=== PATIENT | female | born 1995 | race Caucasian/White ===

== ENCOUNTER 2018-11-05 20:17 | Emergency (ER) | payer OTHER, MEDICAID, SELFPAY ==
[2018-11-05 20:23] VITALS: BP 117/73; PULSE 79; RESP 13; TEMP 36.6; O2SAT 100; BMI 32.4
--- NOTE | 2018-11-05 20:33 | ED.DENTAL ---
HPI - Dental/Oral General Chief complaint: Dental/Oral Stated complaint: JAW PAIN INFECTION Time Seen by Provider: 11/05/18 20:32 Source: patient Mode of arrival: ambulatory Limitations: no limitations History of Present Illness HPI Narrative: 23-year-old female with known poor dentition here for evaluation of left upper tooth pain. She states that it started over the past couple days. She states she has a known abscess in her right upper mouth. She states that her plans are to call her dentist on Thursday. No fevers. No problems breathing. Location: Tooth # (15) Related Data Home Medications Medication Instructions Recorded Confirmed ferrous sulfate [Iron (ferrous 625 mg PO QDAY #0 06/16/16 sulfate)] ibuprofen 400 mg PO TID #0 06/16/16 oxycodone 5 mg PO Q4HP PRN #0 tab 06/16/16 vit-iron fum-folic ac #0 04/15/17 [Mynatal] Previous Rx's Medication Instructions Recorded hydrocodone-acetaminophen [[place]] 1 tab PO Q6HP PRN #10 tab 06/16/16 clindamycin HCl 300 mg PO QID 10 Days #40 cap 11/05/18 Allergies Allergy/AdvReac Type Severity Reaction Status Date / Time amoxicillin [AMOXICILLIN] Allergy Unknown Verified 11/05/18 20:23 tetracycline [TETRACYCLINE] Allergy Unknown Verified 11/05/18 20:23 Review of Systems Constitutional Denies fever(s) and Denies headache(s) ENT Ears, Nose, Mouth, and Throat: Denies halitosis, Reports dental pain, Denies facial pain and Denies headache(s) Cardiovascular Denies dyspnea Respiratory Denies dyspnea Integumentary/Breasts Denies rash Neurologic Denies headache(s) PFSH Medical History Healthy adult (Acute) Surgical History No pertinent past surgical history (Acute) Social History Smoking Status: Never smoker Exam Initial Vital Signs Initial Vital Signs: Vital Signs Temperature 97.8 F 11/05/18 20:23 Pulse Rate 79 11/05/18 20:23 Respiratory Rate 13 11/05/18 20:23 Blood Pressure 117/73 11/05/18 20:23 Pulse Oximetry 100 11/05/18 20:23 Const General: cooperative, healthy appearing, comfortable, well developed, well groomed and No acute distress Orientation: not alert, not awake and not oriented x3 HENMT Head: normal to inspection and normocephalic Ears: TM's normal bilaterally Nose: external nose normal Face and sinus: normal facial exam and no edema Mouth: oral mucosae normal Teeth and gingiva: other (Tooth 2. And 15. Fractured. Tenderness over tooth 15.) Throat: posterior oropharynx normal and uvula midline Neck Lymphatic: No lymphadenopathy Resp Effort & Inspection: normal respiratory effort Skin Lesions: no lesions Rashes: no rashes Neuro General: alert, awake and oriented x3 Extrem General: normal to inspection and capillary refill normal Psych Appearance: grossly normal and well kempt Course Orders Ordered: Discontinued Medications Clindamycin HCl (Cleocin) 300 mg PO NOW ONE Stop: 11/05/18 20:37 Vital Signs - 8 hr 11/05/18 20:23 Temperature 97.8 F Pulse Rate 79 Respiratory Rate 13 Blood Pressure 117/73 Pulse Oximetry 100 MDM - Dental/Oral MDM Narrative Medical decision making narrative: Provided a dental injection which the patient states improved her symptoms tremendously. She was given her 1st dose of antibiotics here in the ER. Will send home with a prescription for antibiotics. Was given a prepack of pain medication. She is going to contact her dentist on Thursday. She is given return precautions. She expressed understanding and agreement with plan. Discharge Plan Departure Patient Disposition: Home Clinical Impression: Fracture of tooth, Pain due to dental caries Instructions: DI for Dental Pain Activity Restrictions/Additional Instructions: I highly recommend you contact your dentist on Thursday for follow-up. Return to the emergency department for any new or worsening symptoms Prescriptions: New clindamycin HCl 300 mg capsule 300 mg PO QID 10 Days Qty: 40 RF: 0 No Action oxycodone 5 MG tablet 5 mg PO Q4HP PRNQty: 0 RF: 0 ferrous sulfate [Iron (ferrous sulfate)] 325 MG tablet 625 mg PO QDAY Qty: 0 RF: 0 ibuprofen 400 MG tablet 400 mg PO TID Qty: 0 RF: 0 hydrocodone-acetaminophen [[place]] 5 MG/325 MG tablet 1 tab PO Q6HP PRNQty: 10 RF: 0 vit-iron fum-folic ac [Mynatal] 1 EACH capsule Qty: 0 RF: 0
[2018-11-05] MEDS: CLINDAMYCIN 150 MG CAPSULE 300 MG PO (20:50)
[2018-11-05] MEDS: HYDROCODONE/ACET 5/325 PREPACK 1 BOTTLE MISC (21:19)
[2018-11-05 21:24] VITALS: BP 118/63; PULSE 86; RESP 16; O2SAT 100
== END 2018-11-05 21:24 | disposition home or self-care (01) ==
PROVIDERS: Emergency Provider Emergency Medicine
DX: S02.5XXA Fracture of tooth (traumatic), initial encounter for closed fracture (principal); K02.9 Dental caries, unspecified
CPT/HCPCS: 99282; 99283

== ENCOUNTER 2018-11-28 19:34 | Emergency (ER) | payer OTHER, MEDICAID, SELFPAY ==
[2018-11-28] VITALS (9 sets, daily range): BP systolic 116–122; BP diastolic 63–82; PULSE 115–137; RESP 17–137; TEMP 37.2–37.4; O2SAT 98–99; BMI 31.6
--- NOTE | 2018-11-28 19:59 | ED.DIZZY ---
HPI - Dizziness General Chief Complaint: Dizziness Stated Complaint: dizzy, feels like she is burning up Time Seen by Provider: 11/28/18 19:58 Source: patient Mode of arrival: ambulatory Limitations: no limitations History of Present Illness HPI Narrative: 23-year-old female here for evaluation of multiple symptoms to include fevers, feeling lightheaded, feeling like her heart is racing, nausea, generalized not feeling very well. No recent travel. No recent antibiotics. No abdominal pain. Has not tried anything for this prior to arrival Related Data Home Medications Medication Instructions Recorded Confirmed ferrous sulfate [Iron (ferrous 625 mg PO QDAY #0 06/16/16 sulfate)] ibuprofen 400 mg PO TID #0 06/16/16 oxycodone 5 mg PO Q4HP PRN #0 tab 06/16/16 vit-iron fum-folic ac #0 04/15/17 [Mynatal] Previous Rx's Medication Instructions Recorded hydrocodone-acetaminophen [[place]] 1 tab PO Q6HP PRN #10 tab 06/16/16 ondansetron 4 mg PO Q6-8H PRN #10 tab 11/29/18 sulfamethoxazole-trimethoprim 1 tab PO BID 3 Days #6 tab 11/29/18 [Bactrim DS] Allergies Allergy/AdvReac Type Severity Reaction Status Date / Time amoxicillin [AMOXICILLIN] Allergy Unknown Verified 11/28/18 19:49 tetracycline [TETRACYCLINE] Allergy Unknown Verified 11/28/18 19:49 Review of Systems Constitutional Reports fever(s), Reports headache(s) and Reports malaise ENT Ears, Nose, Mouth, and Throat: Reports headache(s), Reports disequilibrium and Denies throat swelling Cardiovascular Denies chest pain and Denies dyspnea Respiratory Denies cough and Denies dyspnea Gastrointestinal Gastrointestinal: Denies abdominal pain, Denies diarrhea, Reports nausea and Denies vomiting Genitourinary Denies dysuria, Denies urinary urgency and Denies vaginal discharge Musculoskeletal Reports myalgias and Denies arthralgias Integumentary/Breasts Denies rash Neurologic Reports headache(s) and Reports disequilibrium Hematologic/Lymphatic Comments: Not on anticoagulation Allergic/Immunologic Denies throat swelling PFSH Medical History Healthy adult (Acute) Surgical History No pertinent past surgical history (Acute) Social History Smoking Status: Former smoker Exam Initial Vital Signs Initial Vital Signs: Vital Signs Temperature 99.3 F 11/28/18 19:43 Pulse Rate 137 H 11/28/18 19:43 Respiratory Rate 22 11/28/18 19:43 Blood Pressure 122/78 11/28/18 19:43 Pulse Oximetry 98 11/28/18 19:43 Const General: cooperative, healthy appearing, comfortable, well developed, well groomed and No acute distress Orientation: alert, awake and oriented x3 HENMT Head: normal to inspection and normocephalic Resp Effort & Inspection: normal respiratory effort Auscultation: clear to auscultation bilaterally Cardio Rate: tachycardic Rhythm: regular rhythm Pulses: radial pulses present GI Inspection: non-distended Palpation: soft, No firm and No tender Back/Spine/Pelvis Back: No CVA tenderness Skin Lesions: no lesions Rashes: no rashes Neuro General: alert, awake and oriented x3 Cognition: normal cognition Speech: speech normal Gait: normal gait Motor: muscle tone normal throughout Sensory Exam: no sensory deficits noted Extrem General: normal to inspection and capillary refill normal Psych Appearance: grossly normal and well kempt Course Orders Ordered: ED Orders 11/28/18 20:01 EKG-12 Lead Stat 11/28/18 20:07 XR chest 1V Stat 11/28/18 20:45 Complete Blood Count AUTO DIFF Stat Comprehensive Metabolic Panel Stat Ictotest Urine Stat Influenza A and B by PCR Rapid Stat Lipase Stat Procalcitonin Stat Urine Culture Stat Urine Microscopic Stat 11/28/18 20:49 Lactate (Lactic Acid) Stat 11/28/18 21:20 Blood Culture Stat Discontinued Medications Acetaminophen (Tylenol) 650 mg PO NOW ONE Stop: 11/28/18 20:10 Last Admin: 11/28/18 20:44 Dose: 650 mg Sodium Chloride (Normal Saline 0.9%) 1,000 mls @ 1,000 mls/hr IV BOLUS ONE Stop: 11/28/18 20:59 Last Infusion: 11/28/18 22:13 Dose: 0 mls/hr Admin: 11/28/18 20:53 Dose: 1,000 mls/hr Sodium Chloride (Normal Saline 0.9%) 1,000 mls @ 1,000 mls/hr IV BOLUS ONE Stop: 11/28/18 23:39 Last Infusion: 11/29/18 00:08 Dose: 0 mls/hr Admin: 11/28/18 22:44 Dose: 1,000 mls/hr Ondansetron HCl (Zofran) 4 mg IV NOW ONE Stop: 11/28/18 20:06 Last Admin: 11/28/18 20:53 Dose: 4 mg Vital Signs - 8 hr 11/28/18 19:43 11/28/18 20:00 11/28/18 20:30 Temperature 99.3 F Pulse Rate 137 H 134 H 137 H Respiratory Rate 22 24 137 H Blood Pressure 122/78 Blood Pressure [Left Arm] 122/80 117/82 Pulse Oximetry 98 99 99 11/28/18 20:44 11/28/18 21:00 11/28/18 21:36 Temperature 99.3 F Pulse Rate 137 H 118 H Respiratory Rate 23 17 Blood Pressure Blood Pressure [Left Arm] 116/67 116/67 Pulse Oximetry 98 98 11/28/18 22:02 11/28/18 22:52 11/28/18 22:57 Temperature 98.9 F Pulse Rate 121 H 117 H 115 H Respiratory Rate 18 20 25 H Blood Pressure Blood Pressure [Left Arm] 120/75 118/63 118/63 Pulse Oximetry 98 98 11/29/18 00:17 Temperature 97.3 F L Pulse Rate 103 H Respiratory Rate 16 Blood Pressure 120/60 Blood Pressure [Left Arm] Pulse Oximetry 99 MDM - Dizziness Lab Data Attestation: I reviewed the patient's lab results. Result diagrams: 11/28/18 20:45 11/28/18 20:45 Lab Results 11/28/18 11/28/18 11/28/18 Range/Units 20:45 20:45 20:45 WBC 7.8 (4.5-11.0) X10^3/uL RBC 4.56 (4.0-5.2) X10^6/uL Hgb 14.0 (12.0-16.0) g/dL Hct 40.6 (36-46) % MCV 89.0 (80-100) fL MCH 30.6 (26-34) PG MCHC 34.4 (30-36) % RDW 12.8 (11.6-14.8) % Plt Count 171 (150-400) X10^3/uL Neut % (Auto) 78.7 H (50-75) % Lymph % (Auto) 12.8 L (25-40) % [place] % (Auto) 8.2 (3-14) % Eos % (Auto) 0.1 L (2-4) % Baso % (Auto) 0.2 (0-2) % Neut # (Auto) 6200 (3901-0145) /uL Sodium 141 (137-145) mmol/L Potassium 3.4 (3.4-5.1) mmol/L Chloride 103 (98-107) mmol/L Carbon Dioxide 25 (22-32) mmol/L BUN 7 (7-17) mg/dL Creatinine 0.70 (0.52-1.04) mg/dL Estimated GFR > 60.0 (>60) mL/min BUN/Creatinine Ratio 10.0 (6-22) Glucose 106 H (70-100) mg/dL Lactate (0.7-2.1) mmol/L Calcium 9.2 (8.4-10.2) mg/dL Total Bilirubin 0.4 (0.2-1.3) mg/dL AST 27 (14-36) IU/L ALT 27 (9-52) IU/L Alkaline Phosphatase 84 (38-126) U/L Total Protein 7.6 (6.3-8.2) g/dL Albumin 4.3 (3.5-5.0) g/dL Globulin 3.3 (1.7-4.1) g/dL Albumin/Globulin Ratio 1.3 (1.0-2.8) Lipase 37 (23-300) U/L Procalcitonin 1.72 H (<0.5) ng/mL Urine Ictotest (Negative) Urine RBC (0-5/HPF) Urine WBC (0-5/HPF) Ur Squamous Epith Cells Urine Bacteria (None) Ur Culture Indicated? Micro UA Comment Influenza A & B (PCR) (Negative) 11/28/18 11/28/18 11/28/18 Range/Units 20:45 20:45 20:49 WBC (4.5-11.0) X10^3/uL RBC (4.0-5.2) X10^6/uL Hgb (12.0-16.0) g/dL Hct (36-46) % MCV (80-100) fL MCH (26-34) PG MCHC (30-36) % RDW (11.6-14.8) % Plt Count (150-400) X10^3/uL Neut % (Auto) (50-75) % Lymph % (Auto) (25-40) % [place] % (Auto) (3-14) % Eos % (Auto) (2-4) % Baso % (Auto) (0-2) % Neut # (Auto) (5468-2550) /uL Sodium (137-145) mmol/L Potassium (3.4-5.1) mmol/L Chloride (98-107) mmol/L Carbon Dioxide (22-32) mmol/L BUN (7-17) mg/dL Creatinine (0.52-1.04) mg/dL Estimated GFR (>60) mL/min BUN/Creatinine Ratio (6-22) Glucose (70-100) mg/dL Lactate 1.2 (0.7-2.1) mmol/L Calcium (8.4-10.2) mg/dL Total Bilirubin (0.2-1.3) mg/dL AST (14-36) IU/L ALT (9-52) IU/L Alkaline Phosphatase (38-126) U/L Total Protein (6.3-8.2) g/dL Albumin (3.5-5.0) g/dL Globulin (1.7-4.1) g/dL Albumin/Globulin Ratio (1.0-2.8) Lipase (23-300) U/L Procalcitonin (<0.5) ng/mL Urine Ictotest Negative (Negative) Urine RBC 1-5/hpf (0-5/HPF) Urine WBC 10-30/hpf H (0-5/HPF) Ur Squamous Epith Cells 1-5 /hpf Urine Bacteria Moderate (10-30) H (None) Ur Culture Indicated? Specimen cultured Micro UA Comment Not Reportable Influenza A & B (PCR) Negative (Negative) Point of Care Testing Test Results Negative Urine Dip Bedside Urine Glucose Negative Bedside Urine Bilirubin + 1 Bedside Urine Ketone +/- 5 Urine Specific [place] 1.015 Bedside Urine Occult Blood +++ Bedside Urine pH 7.0 Bedside Urine Protein +/- 15 Bedside Urine Urobilinogen +/- 1mg Bedside Urine Nitrite - Negative Bedside Urine Leukocytes +++ 500 Esterase Imaging Data Chest x-ray: Radiologist's impression: PROCEDURE: XR CHEST 1V INDICATIONS: fever and cough TECHNIQUE: One view of the chest was acquired. COMPARISON: None. FINDINGS: Surgical changes and devices: None. Lungs and pleura: No pleural effusions or pneumothorax. Lungs are clear. Mediastinum: Mediastinal contours appear normal. Heart size is normal. Bones and chest wall: No suspicious bony lesions. Overlying soft tissues appear unremarkable. IMPRESSION: 1. No acute cardiopulmonary disease. Dictated by: Quintin Rivera M.D. on 11/28/2018 at 21:06 Approved by: Quintin Rivera M.D. on 11/28/2018 at 21:06 ECG Data Attestation: I personally reviewed and interpreted this ECG as follows: Prior ECG tracings: not available for review Interpretation: Sinus tachycardia Ventricular rate of 135 Normal axis Normal intervals Normal QRS Normal QTC Nonspecific ST T wave changes MDM Narrative Medical decision making narrative: Patient's urinalysis consistent with a urinary tract infection. Her heart rate improved after fluids here in the ER. She had a benign abdominal exam. Normal white blood cell count but did have an elevated procalcitonin in the setting of a normal lactate. Patient was not hypotensive. No signs of pyelonephritis. Tolerating oral intake. Will send home with antibiotics treating a urinary tract infection. Culture pending at the time of discharge. Patient was given return precautions. She expressed understanding and agreement with plan. Discharge Plan Departure Patient Disposition: Home Clinical Impression: Urinary tract infection Discharge Date/Time: 11/29/18 00:18 Interventions: ED Discharge Assessment Last Done: 11/29/18 00:17 Instructions: DI for Urinary Tract Infection (UTI) Activity Restrictions/Additional Instructions: Take all the medication as directed. Make sure you increase your fluid intake. Return to the emergency department for any new or worsening symptoms Prescriptions: New sulfamethoxazole-trimethoprim [Bactrim DS] 800-160 mg tablet 1 tab PO BID 3 Days Qty: 6 RF: 0 ondansetron 4 mg tablet,disintegrating 4 mg PO Q6-8H PRN (Reason: nausea and vomiting) Qty: 10 RF: 0 No Action oxycodone 5 MG tablet 5 mg PO Q4HP PRNQty: 0 RF: 0 ferrous sulfate [Iron (ferrous sulfate)] 325 MG tablet 625 mg PO QDAY Qty: 0 RF: 0 ibuprofen 400 MG tablet 400 mg PO TID Qty: 0 RF: 0 hydrocodone-acetaminophen [[place]] 5 MG/325 MG tablet 1 tab PO Q6HP PRNQty: 10 RF: 0 vit-iron fum-folic ac [Mynatal] 1 EACH capsule Qty: 0 RF: 0
--- NOTE | 2018-11-28 20:07 | DI.RAD.S_ITS ---
PROCEDURE: XR CHEST 1V INDICATIONS: fever and cough TECHNIQUE: One view of the chest was acquired. COMPARISON: None. FINDINGS: Surgical changes and devices: None. Lungs and pleura: No pleural effusions or pneumothorax. Lungs are clear. Mediastinum: Mediastinal contours appear normal. Heart size is normal. Bones and chest wall: No suspicious bony lesions. Overlying soft tissues appear unremarkable. IMPRESSION: 1. No acute cardiopulmonary disease. Dictated by: Quintin Rivera M.D. on 11/28/2018 at 21:06 Approved by: Quintin Rivera M.D. on 11/28/2018 at 21:06
[2018-11-28] MEDS: ACETAMINOPHEN 325 MG TABLET 650 MG PO (20:44)
[2018-11-28] MEDS: ONDANSETRON 4 MG/2 ML INJ IV (20:53)
[2018-11-28] MEDS: SODIUM CHLORIDE 0.9% 1,000 ML 1000 ML IV ×2 (20:53→22:44)
[2018-11-28 21:14] LABS: Add Manual Diff / Slide Review NO; Basophils Percent Auto 0.2 % (0-2); Eosinophils Percent Auto 0.1 % (2-4); Hematocrit 40.6 % (36-46); Lymphocytes Percent Auto 12.8 % (25-40); Mean Corpuscular HGB Conc 34.4 % (30-36); Mean Corpuscular Hemoglobin 30.6 PG (26-34); Monocytes Percent Auto 8.2 % (3-14); Neutrophils Absolute Auto 6200 /uL (1500-7000); Neutrophils Percent Auto 78.7 % (50-75); Platelet Count 171 X10^3/uL (150-400); Red Blood Cell Count 4.56 X10^6/uL (4.0-5.2); Red Cell Distribution Width 12.8 % (11.6-14.8); White Blood Cell Count 7.8 X10^3/uL (4.5-11.0)
[2018-11-28 21:16] LABS: Alanine Aminotransferase 27 IU/L (9-52); Albumin 4.3 g/dL (3.5-5.0); Albumin Globulin Ratio 1.3 (1.0-2.8); Alkaline Phosphatase 84 U/L (38-126); Aspartate Aminotransferase 27 IU/L (14-36); Bilirubin Total 0.4 mg/dL (0.2-1.3); Blood Urea Nitrogen 7 mg/dL (7-17); Calcium 9.2 mg/dL (8.4-10.2); Carbon Dioxide 25 mmol/L (22-32); Chloride 103 mmol/L (98-107); Estimated Glomerular Filt Rate > 60.0 mL/min (>60); Globulin 3.3 g/dL (1.7-4.1); Glucose 106 mg/dL (70-100); HEMOLYSIS < 15 (0-50); Lipase 37 U/L (23-300); Potassium 3.4 mmol/L (3.4-5.1); Sodium 141 mmol/L (137-145); Total Protein 7.6 g/dL (6.3-8.2)
[2018-11-28 21:17] LABS: Influenza A and B by PCR Rapid Negative (Negative)
[2018-11-28 21:33] LABS: Procalcitonin 1.72 ng/mL (<0.5)
[2018-11-28 21:51] LABS: Lactate (Lactic Acid) 1.2 mmol/L (0.7-2.1)
[2018-11-28 22:57] LABS: Bacteria Urine Moderate (10-30); Culture Indicated Urine Specimen Cultured; Ictotest Urine Negative (Negative); RBC Urine 1-5/HPF (0-5/HPF); Squamous Epithelial Cell Urine 1-5 /HPF; WBC Urine 10-30/HPF (0-5/HPF)
[2018-11-29 00:17] VITALS: BP 120/60; PULSE 103; RESP 16; TEMP 36.3; O2SAT 99
== END 2018-11-29 00:18 | disposition home or self-care (01) ==
PROVIDERS: Emergency Provider Emergency Medicine
DX: N39.0 Urinary tract infection, site not specified (principal)
CPT/HCPCS: 36415; 36591; 71045; 80053; 81003; 81015; 81025; 83605; 83690; 84145; 85025; 87040; 87077; 87086; 87400; 93005; 96361; 96374; 99284; 99285; J2405

== ENCOUNTER 2019-03-22 23:11 | Emergency (ER) | payer OTHER, MEDICAID, SELFPAY ==
[2019-03-22 23:15] VITALS: BP 133/82; PULSE 129; RESP 18; TEMP 37.1; O2SAT 99; BMI 31.7
--- NOTE | 2019-03-22 23:27 | ED.ABDPAIN ---
HPI - Abdominal Pain General Chief Complaint: Abdominal Pain Stated Complaint: chills, pain right side thinks gall bladder Time Seen by Provider: 03/22/19 23:26 Source: patient Mode of arrival: ambulatory Limitations: no limitations History of Present Illness HPI narrative: Patient is a 23-year-old female here for evaluation of right upper quadrant abdominal pain. Patient states she thinks it is her gallbladder. Has had some nausea but no vomiting. No change in stool. No urinary symptoms. She has never had this pain in the past. Her current pain started within the past 24 hours. Does not seem to be associated with any eating. Has not tried anything for the symptoms prior to arrival. Related Data Home Medications Medication Instructions Recorded Confirmed ferrous sulfate [Iron (ferrous 625 mg PO QDAY #0 06/16/16 sulfate)] ibuprofen 400 mg PO TID #0 06/16/16 oxycodone 5 mg PO Q4HP PRN #0 tab 06/16/16 vit-iron fum-folic ac #0 04/15/17 [Mynatal] Previous Rx's Medication Instructions Recorded hydrocodone-acetaminophen [[place]] 1 tab PO Q6HP PRN #10 tab 06/16/16 ondansetron 4 mg PO Q6-8H PRN #10 tab 11/29/18 Allergies Allergy/AdvReac Type Severity Reaction Status Date / Time amoxicillin [AMOXICILLIN] Allergy Unknown Verified 11/28/18 19:49 tetracycline [TETRACYCLINE] Allergy Unknown Verified 11/28/18 19:49 Review of Systems Constitutional Denies fever(s) and Denies headache(s) ENT Ears, Nose, Mouth, and Throat: Denies vertigo and Denies headache(s) Cardiovascular Denies chest pain and Denies dyspnea Respiratory Denies dyspnea Gastrointestinal Gastrointestinal: Reports abdominal pain, Denies bloating, Denies change in stool character, Denies constipation, Denies cramping and Denies vomiting Genitourinary Denies dysuria and Denies flank pain Musculoskeletal Denies myalgias and Denies arthralgias Integumentary/Breasts Denies rash Neurologic Denies confusion, Denies vertigo and Denies headache(s) Psychiatric Denies confusion and Denies paranoia Hematologic/Lymphatic Denies easy bleeding and Denies easy bruising Allergic/Immunologic Denies urticaria [facility] Medical History Healthy adult (Acute) Surgical History (Updated 11/05/18 @ 20:52 by Miguel Fatima DO) No pertinent past surgical history (Acute) Social History Smoking Status: Former smoker Social History Smoking Status: Former smoker Exam Initial Vital Signs Initial Vital Signs: Vital Signs Temperature 98.8 F 03/22/19 23:15 Pulse Rate 129 H 03/22/19 23:15 Respiratory Rate 18 03/22/19 23:15 Blood Pressure 133/82 03/22/19 23:15 Pulse Oximetry 99 03/22/19 23:15 Const General: cooperative, comfortable, well developed, well groomed and No acute distress Orientation: alert, awake and oriented x3 HENMT Head: normal to inspection and normocephalic Resp Effort & Inspection: normal respiratory effort Auscultation: clear to auscultation bilaterally Cardio Rate: tachycardic Rhythm: regular rhythm Pulses: radial pulses present GI Inspection: non-distended Palpation: soft, No firm, No guarding and tender (Right upper quadrant negative [place] sign) Back/Spine/Pelvis Back: No CVA tenderness Skin Lesions: no lesions Rashes: no rashes Neuro General: alert, awake and oriented x3 Cognition: normal cognition Speech: speech normal Gait: normal gait Extrem General: normal to inspection and capillary refill normal Psych Appearance: grossly normal and well kempt Scores GCS [place] coma scale eye opening: Spontaneous [place] coma scale verbal response: Orientated [place] coma scale motor response: Obey commands Lex coma scale total score: 15 Course Orders Ordered: ED Orders 03/22/19 23:31 Complete Blood Count AUTO DIFF Stat Comprehensive Metabolic Panel Stat Lipase Stat 03/22/19 23:33 EKG-12 Lead Stat 03/22/19 23:49 US abdomen limited Stat 03/23/19 01:30 Ictotest Urine Stat Urine Microscopic Stat Discontinued Medications Sodium Chloride (Normal Saline 0.9%) 1,000 mls @ 1,000 mls/hr IV BOLUS ONE Stop: 03/23/19 00:26 Last Infusion: 03/23/19 01:01 Dose: 0 mls/hr Admin: 03/23/19 00:00 Dose: 1,000 mls/hr Vital Signs - 8 hr 03/22/19 23:15 03/23/19 00:40 03/23/19 00:43 Temperature 98.8 F Pulse Rate 129 H 106 H Respiratory Rate 18 18 Blood Pressure 133/82 Blood Pressure [Right Arm] 118/68 Pulse Oximetry 99 99 03/23/19 02:47 Temperature Pulse Rate 106 H Respiratory Rate 15 Blood Pressure 115/83 Blood Pressure [Right Arm] Pulse Oximetry 97 MDM - Abdominal Pain Lab Data Attestation: I reviewed the patient's lab results. Result diagrams: 03/22/19 23:31 03/22/19 23:31 Lab Results 03/22/19 03/22/19 03/23/19 Range/Units 23:31 23:31 01:30 WBC 6.6 (4.5-11.0) X10^3/uL RBC 4.68 (4.0-5.2) X10^6/uL Hgb 14.3 (12.0-16.0) g/dL Hct 41.1 (36-46) % MCV 87.8 (80-100) fL MCH 30.5 (26-34) PG MCHC 34.7 (30-36) % RDW 13.3 (11.6-14.8) % Plt Count 197 (150-400) X10^3/uL Neut % (Auto) 74.7 (50-75) % Lymph % (Auto) 18.7 L (25-40) % [place] % (Auto) 5.7 (3-14) % Eos % (Auto) 0.6 L (2-4) % Baso % (Auto) 0.3 (0-2) % Neut # (Auto) 4900 (2601-9690) /uL Lymph # (Auto) 1200 (3302-8337) /uL [place] # (Auto) 400 (0-900) /uL Eos # (Auto) 0 (0-450) /uL Baso # (Auto) 0 (0-100) /uL Sodium 139 (137-145) mmol/L Potassium 4.0 (3.4-5.1) mmol/L Chloride 105 (98-107) mmol/L Carbon Dioxide 22 (22-32) mmol/L BUN 10 (7-17) mg/dL Creatinine 0.70 (0.52-1.04) mg/dL Estimated GFR > 60.0 (>60) mL/min BUN/Creatinine Ratio 14.3 (6-22) Glucose 116 H (70-100) mg/dL Calcium 9.2 (8.4-10.2) mg/dL Total Bilirubin 0.6 (0.2-1.3) mg/dL AST 25 (14-36) IU/L ALT 21 (9-52) IU/L Alkaline Phosphatase 82 (38-126) U/L Total Protein 7.9 (6.3-8.2) g/dL Albumin 4.4 (3.5-5.0) g/dL Globulin 3.5 (1.7-4.1) g/dL Albumin/Globulin Ratio 1.3 (1.0-2.8) Lipase 43 (23-300) U/L Urine Ictotest Negative (Negative) Urine RBC None seen (0-5/HPF) Urine WBC 1-5/hpf (0-5/HPF) Ur Squamous Epith Cells 10-30 /hpf H D (0-5/HPF) Urine Bacteria Many (>30) H (None) Ur Culture Indicated? Cult not indicated Micro UA Comment * Point of care testing: Point of Care Testing Test Results Negative Urine Dip Bedside Urine Glucose Negative Bedside Urine Bilirubin + 1 Bedside Urine Ketone - Negative Urine Specific [place] 1.025 Bedside Urine Occult Blood - Negative Bedside Urine pH 5.5 Bedside Urine Protein +/- 15 Bedside Urine Urobilinogen +/- 1mg Bedside Urine Nitrite - Negative Bedside Urine Leukocytes +/- 15 Esterase Imaging Data US - abdomen: Radiologist's impression: No abnormality of the gallbladder seen. Probable fatty liver. ECG Data Attestation: I personally reviewed and interpreted this ECG as follows: Prior ECG tracings: not available for review Interpretation: Sinus tachycardia Ventricular rate of 108 Normal axis Normal QRS Normal QTC No ST T wave changes MDM Narrative Medical decision making narrative: Patient initially tachycardic in triage however this improved while she was here in the ER. Her EKG was unremarkable. patient with right upper quadrant abdominal pain. The ultrasound was unremarkable. Her LFTs and lipase unremarkable. Urine shows no signs of an infection. Patient has a relatively benign abdominal exam. Given her presentation and her physical exam will hold on further workup for now. I did discuss all the test results with the patient. She was given return precautions and follow-up instructions. She expressed understanding and agreement with plan. Discharge Plan Departure Patient Disposition: Home Clinical Impression: Abdominal pain Qualifiers: Abdominal location: right upper quadrant Qualified Code(s): R10.11 - Right upper quadrant pain Discharge Date/Time: 03/23/19 02:42 Interventions: ED Discharge Assessment Last Done: 03/23/19 02:47 Instructions: DI for Abdominal Pain-Adult Activity Restrictions/Additional Instructions: Continue all of your medications as directed. Contact your primary care doctor for follow-up. Return to the emergency department for any new or worsening symptoms Prescriptions: No Action oxycodone 5 MG tablet 5 mg PO Q4HP PRNQty: 0 RF: 0 ferrous sulfate [Iron (ferrous sulfate)] 325 MG tablet 625 mg PO QDAY Qty: 0 RF: 0 ibuprofen 400 MG tablet 400 mg PO TID Qty: 0 RF: 0 hydrocodone-acetaminophen [[place]] 5 MG/325 MG tablet 1 tab PO Q6HP PRNQty: 10 RF: 0 vit-iron fum-folic ac [Mynatal] 1 EACH capsule Qty: 0 RF: 0 ondansetron 4 mg tablet,disintegrating 4 mg PO Q6-8H PRN (Reason: nausea and vomiting) Qty: 10 RF: 0
[2019-03-22 23:39] LABS: Add Manual Diff / Slide Review NO; Basophils Absolute Auto 0 /uL (0-100); Basophils Percent Auto 0.3 % (0-2); Eosinophils Absolute Auto 0 /uL (0-450); Eosinophils Percent Auto 0.6 % (2-4); Hematocrit 41.1 % (36-46); Hemoglobin 14.3 g/dL (12.0-16.0); Lymphocytes Absolute Auto 1200 /uL (1100-4500); Lymphocytes Percent Auto 18.7 % (25-40); Mean Corpuscular HGB Conc 34.7 % (30-36); Mean Corpuscular Hemoglobin 30.5 PG (26-34); Mean Corpuscular Volume 87.8 fL (80-100); Monocytes Absolute Auto 400 /uL (0-900); Monocytes Percent Auto 5.7 % (3-14); Neutrophils Absolute Auto 4900 /uL (1500-7000); Neutrophils Percent Auto 74.7 % (50-75); Platelet Count 197 X10^3/uL (150-400); Red Blood Cell Count 4.68 X10^6/uL (4.0-5.2); Red Cell Distribution Width 13.3 % (11.6-14.8); White Blood Cell Count 6.6 X10^3/uL (4.5-11.0)
[2019-03-22 23:44] LABS: Alanine Aminotransferase 21 IU/L (9-52); Albumin 4.4 g/dL (3.5-5.0); Albumin Globulin Ratio 1.3 (1.0-2.8); Alkaline Phosphatase 82 U/L (38-126); Aspartate Aminotransferase 25 IU/L (14-36); BUN Creatinine Ratio 14.3 (6-22); Bilirubin Total 0.6 mg/dL (0.2-1.3); Blood Urea Nitrogen 10 mg/dL (7-17); Calcium 9.2 mg/dL (8.4-10.2); Carbon Dioxide 22 mmol/L (22-32); Chloride 105 mmol/L (98-107); Estimated Glomerular Filt Rate > 60.0 mL/min (>60); Globulin 3.5 g/dL (1.7-4.1); Glucose 116 mg/dL (70-100); HEMOLYSIS 49 (0-50); Lipase 43 U/L (23-300); Sodium 139 mmol/L (137-145); Total Protein 7.9 g/dL (6.3-8.2)
--- NOTE | 2019-03-22 23:49 | DI.US.S_ITS ---
PROCEDURE: US ABDOMEN LIMITED INDICATIONS: RIGHT UPPER QUADRANT PAIN TECHNIQUE: Real-time focused scanning was performed of the abdomen, with image documentation. COMPARISON: [facility], , ABDOMEN LTD, 03/17/2017, 15:29. FINDINGS: Liver is diffusely increased in echogenicity. No focal hepatic abnormalities identified. Normal hepatic size. No gallstones identified. Normal gallbladder wall. No pericholecystic fluid. Negative sonographic Encinas sign. No biliary dilatation, with the common bile duct measuring 4.1 mm. Normal appearance of the pancreas. IMPRESSION: No source for right upper quadrant pain identified. Note: These findings are concordant with the preliminary interpretation. Dictated by: Gilmar Reynolds [facility] Interpreted: Aaron Ward MD on 03/23/2019 at 8:30 Approved by: Aaron Ward M.D. on 03/23/2019 at 11:06
[2019-03-23] MEDS: SODIUM CHLORIDE 0.9% 1,000 ML 1000 ML IV
[2019-03-23 00:40] VITALS: PULSE 106; RESP 18; O2SAT 99
[2019-03-23 00:43] VITALS: BP 118/68
[2019-03-23 01:53] LABS: RBC Urine None Seen (0-5/HPF)
[2019-03-23 02:10] LABS: Bacteria Urine Many (>30); Ictotest Urine Negative (Negative); WBC Urine 1-5/HPF (0-5/HPF)
[2019-03-23 02:11] LABS: Squamous Epithelial Cell Urine 10-30 /HPF (0-5/HPF)
[2019-03-23 02:12] LABS: Culture Indicated Urine Cult Not Indicated
[2019-03-23 02:47] VITALS: BP 115/83; PULSE 106; RESP 15; O2SAT 97
== END 2019-03-23 02:42 | disposition home or self-care (01) ==
PROVIDERS: Emergency Provider Emergency Medicine
DX: R10.11 Right upper quadrant pain (principal); R11.0 Nausea; R00.0 Tachycardia, unspecified
CPT/HCPCS: 36591; 76705; 80053; 81003; 81015; 81025; 83690; 85025; 93005; 96360; 99283; 99285

== ENCOUNTER 2020-02-25 09:06 | Emergency (ER) | payer OTHER, MEDICAID, SELFPAY ==
[2020-02-25 09:28] VITALS: BP 126/88; PULSE 82; RESP 12; TEMP 36.5; O2SAT 100
--- NOTE | 2020-02-25 09:31 | ED_ITS ---
HPI - General Adult General Chief complaint: Fever Stated complaint: cleared for work/ fever cleared Time Seen by Provider: 02/25/20 09:26 Source: patient Mode of arrival: Ambulatory Limitations: no limitations History of Present Illness HPI narrative: Patient is an otherwise healthy 24-year-old female who is a project account manager at [employer]. She states that on this week had a slight headache in a fever and a cough. She states that last evening her fever ?broke?. Has not taken anything this morning. Is essentially asymptomatic this morning. Is here because her work told her that she needed a note to return to work. Related Data Home Medications Medication Instructions Recorded Confirmed ferrous sulfate [Iron (ferrous 625 mg PO QDAY #0 06/16/16 sulfate)] ibuprofen 400 mg PO TID #0 06/16/16 oxycodone 5 mg PO Q4HP PRN #0 tab 06/16/16 vit-iron fum-folic ac #0 04/15/17 [Mynatal] Previous Rx's Medication Instructions Recorded hydrocodone-acetaminophen [[place]] 1 tab PO Q6HP PRN #10 tab 06/16/16 ondansetron 4 mg PO Q6-8H PRN #10 tab 11/29/18 Allergies Allergy/AdvReac Type Severity Reaction Status Date / Time amoxicillin [AMOXICILLIN] Allergy Unknown Verified 11/28/18 19:49 tetracycline [TETRACYCLINE] Allergy Unknown Verified 11/28/18 19:49 Review of Systems Constitutional Constitutional: Reports fever(s) and Reports headache(s) ENT Ears, Nose, Mouth, and Throat: Reports headache(s) and Reports sore throat Respiratory Respiratory: Reports cough Musculoskeletal Musculoskeletal: Denies myalgias and Denies arthralgias Integumentary/Breasts Skin/Breast: Denies lesions and Denies rash Neurologic Neurologic: Denies behavioral changes and Reports headache(s) Psychiatric Psychiatric: Denies behavioral changes Hematologic/Lymphatic Hematologic/Lymphatic: Denies easy bleeding and Denies easy bruising Patient History Medical History Healthy adult (Acute) Surgical History No pertinent past surgical history (Acute) Social History Smoking Status: Former smoker Smoking Status: Former smoker alcohol intake frequency: 0-2 drinks per day Substance Use Type: former substance user Exam Initial Vital Signs Initial Vital Signs: Vital Signs Temperature 97.7 F 02/25/20 09:28 Pulse Rate 82 02/25/20 09:28 Respiratory Rate 12 02/25/20 09:28 Blood Pressure 126/88 02/25/20 09:28 Pulse Oximetry 100 02/25/20 09:28 Resp Effort & Inspection: normal respiratory effort Cardio Rate: regular rate Skin Lesions: no lesions Rashes: no rashes Neuro General: alert and awake Cognition: normal cognition Speech: speech normal Psych Appearance: grossly normal and well kempt Course Vital Signs Vital signs: Vital Signs - 8 hr 02/25/20 09:28 Temperature 97.7 F Pulse Rate 82 Respiratory Rate 12 Blood Pressure 126/88 Pulse Oximetry 100 Medical Decision Making MDM Narrative Medical decision making narrative: Normal exam, asymptomatic today, feel that we could hold on testing for any COVID informed patient that there is a possibility that she has this. Informed her that she needs to be at least 7 days since her symptom onset and 72 hour symptom-free before she can return to work. She was given return precautions. She expressed understanding agreement. Discharge Plan Departure Patient Disposition: Home Clinical Impression: Fever Qualifiers: Fever type: unspecified Qualified Code(s): R50.9 - Fever, unspecified Discharge Date/Time: 02/25/20 09:43 Instructions: DI for Fever (Symptom) -- Adult Activity Restrictions/Additional Instructions: *What to do: * per recommendations from the CDC and the [facility] Department of Health * stay home except to get medical care. Restrict activities outside your home, except for getting medical care. Do not go to work, school, or public areas. Avoid using public transportation, ride sharing, or taxis. * separate yourself from other people in your home. * call ahead before visiting your doctor * Wear a face mask * Cover your coughs and sneezes * Clean your hands often * Avoid sharing household items * Clean all high-touch services every day * Monitor your symptoms and seek prompt medical attention if your illness is worsening, particularly with difficulty in breathing. Discussed continuing home isolation * for individuals with symptoms who are confirmed or suspected cases of COVID-19 and are directed to care for themselves at home, discontinue home isolation under the following conditions: 1. At least 72 hours have passed since recovery, defined as resolution of fever without the use of fever reducing medications, and improvement in respiratory symptoms (cough, shortness of breath) AND, 2. At least 7 days have passed since symptoms 1st appeared Individuals with laboratory confirmed COVID-19 who have not had any symptoms may discontinue home isolation when at least 7 days have passed since the date of their 1st COVID-19 diagnostic test and have had no subsequent illness Prescriptions: No Action oxycodone 5 MG tablet 5 mg PO Q4HP PRNQty: 0 RF: 0 ferrous sulfate [Iron (ferrous sulfate)] 325 MG tablet 625 mg PO QDAY Qty: 0 RF: 0 ibuprofen 400 MG tablet 400 mg PO TID Qty: 0 RF: 0 hydrocodone-acetaminophen [[place]] 5 MG/325 MG tablet 1 tab PO Q6HP PRNQty: 10 RF: 0 vit-iron fum-folic ac [Mynatal] 1 EACH capsule Qty: 0 RF: 0 ondansetron 4 mg tablet,disintegrating 4 mg PO Q6-8H PRN (Reason: nausea and vomiting) Qty: 10 RF: 0 Stand Alone Forms: Work Release Note
--- NOTE | 2020-02-25 09:42 | PC.NURSE ---
no fever, wants note for work
== END 2020-02-25 09:43 | disposition home or self-care (01) ==
PROVIDERS: Emergency Provider Emergency Medicine
DX: R50.9 Fever, unspecified (principal)
CPT/HCPCS: 99281

== ENCOUNTER 2021-01-10 18:55 | Emergency (ER) | payer OTHER, MEDICAID, SELFPAY ==
[2021-01-10 19:03] VITALS: BP 125/77; PULSE 79; RESP 14; TEMP 36.4; O2SAT 100; BMI 32.4
--- NOTE | 2021-01-10 20:06 | PC.NURSE ---
patient is a mother who is currently 9 wks with a current known fibroid. She is currently being seen by Dr. Arriola in [facility]. She stated that she has migraine headaches but has no more imatrex to take. She states that her coworker went home sick on Thursday and her mom was sick last week with the Stomach flu. Today she has a headache that is 7/10, with pelvic cramps, muscle soreness, chills. She denies fever at this time. Incidentally she claims that she developed cholestasis for each of her in and around 30 wks. She had an ultrasound at Dr. oliveros's office on jan 01 and she was told that the placenta may have implanted into her uterus.
--- NOTE | 2021-01-10 20:22 | ED_ITS ---
HPI - Headache General Chief Complaint: Headache Stated Complaint: headache, nausea, cramping, 9wks Time Seen by Provider: 01/10/21 20:19 Source: patient Mode of arrival: Ambulatory Limitations: no limitations History of Present Illness HPI Narrative: Patient is a 25-year-old female who is approximately 9 weeks with a known intrauterine from a ultrasound performed at a outside facility here for evaluation which she states is a headache. She is also having some nausea and cramping but no other abdominal pain and no loss of fluid no vaginal bleeding. She has a history of migraines. She states that her headache today feels like 1 of her migraines. States she normally takes Imitrex however no longer has a prescription for this. Denies any fevers. Related Data Home Medications Medication Instructions Recorded Confirmed ferrous sulfate [Iron (ferrous 625 mg PO QDAY #0 06/16/16 sulfate)] ibuprofen 400 mg PO TID #0 06/16/16 oxycodone 5 mg PO Q4HP PRN #0 tab 06/16/16 vit-iron fum-folic ac #0 04/15/17 [Mynatal] Previous Rx's Medication Instructions Recorded hydrocodone-acetaminophen [[place]] 1 tab PO Q6HP PRN #10 tab 06/16/16 ondansetron 4 mg PO Q6-8H PRN #10 tab 11/29/18 sumatriptan succinate [Imitrex] See Rx Instructions .ROUTE 01/10/21 .COMPLEX #10 tab Allergies Allergy/AdvReac Type Severity Reaction Status Date / Time amoxicillin [AMOXICILLIN] Allergy Unknown Verified 01/10/21 19:03 tetracycline [TETRACYCLINE] Allergy Unknown Verified 01/10/21 19:03 Review of Systems Constitutional Constitutional: Denies fever(s) and Reports headache(s) Eyes Eyes: Reports blurry vision ENT Ears, Nose, Mouth, and Throat: Reports headache(s) Cardiovascular Cardiovascular: Denies chest pain and Denies dyspnea Respiratory Respiratory: Denies dyspnea Gastrointestinal Gastrointestinal: Reports nausea Genitourinary Genitourinary: Denies vaginal discharge Musculoskeletal Musculoskeletal: Denies arthralgias and Denies myalgias Integumentary/Breasts Skin/Breast: Denies lesions and Denies rash Neurologic Neurologic: Denies behavioral changes and Reports headache(s) Psychiatric Psychiatric: Denies behavioral changes Hematologic/Lymphatic On Anticoagulants: No Allergic/Immunologic Allergic/Immunologic: Denies urticaria Patient History Medical History Healthy adult Surgical History No pertinent past surgical history Social History Smoking Status: Former smoker Smoking Status: Former smoker alcohol intake frequency: holidays/special occasions only Substance Use Type: does not use Exam Initial Vital Signs Initial Vital Signs: Vital Signs Temperature 97.5 F L 01/10/21 19:03 Pulse Rate 79 01/10/21 19:03 Respiratory Rate 14 01/10/21 19:03 Blood Pressure 125/77 01/10/21 19:03 Pulse Oximetry 100 01/10/21 19:03 Const General: cooperative and comfortable Limitations: mental status not altered HENMT Head: normal to inspection and normocephalic Resp Effort & Inspection: normal respiratory effort Cardio Rate: regular rate GI Inspection: non-distended Skin Lesions: no lesions Rashes: no rashes Neuro General: patient alert, patient awake and patient oriented x3 Cognition: normal cognition Speech: speech normal Gait: normal gait Extrem General: normal to inspection Psych Appearance: grossly normal and well kempt Course Orders Ordered: Discontinued Medications Sumatriptan Succinate (Sumatriptan 25 Mg Tablet) 25 mg PO NOW ONE Stop: 01/10/21 20:24 Last Admin: 01/10/21 20:55 Dose: 25 mg Documented by: SANDER Vital Signs Vital signs: Vital Signs - 8 hr 01/10/21 21:40 Pulse Rate 76 Respiratory Rate 14 Blood Pressure 116/56 L Pulse Oximetry 99 MDM - Headache MDM Narrative Medical decision making narrative: Patient is a known IUP. Is not having any vaginal bleeding or vaginal discharge. Was given 1 dose of Imitrex here in the emergency department and she reported a resolution of her headache. Will send home with a prescription for this medication. It is appropriate use in according to up-to-date. Patient was given return precautions and follow-up instructions. She expressed understanding and agreement. Discharge Plan Departure Patient Disposition: Home Clinical Impression: Migraine, Instructions: DI for Migraine Activity Restrictions/Additional Instructions: I do recommend you continue all of your medications as directed. Keep all of your scheduled medical appointments to include your OB appointments. Return to the emergency department for any new or worsening symptoms. Prescriptions: New sumatriptan succinate [Imitrex] 25 mg tablet See Rx Instructions .ROUTE .COMPLEX Qty: 10 RF: 0 No Action oxycodone 5 MG tablet 5 mg PO Q4HP PRNQty: 0 RF: 0 ferrous sulfate [Iron (ferrous sulfate)] 325 MG tablet 625 mg PO QDAY Qty: 0 RF: 0 ibuprofen 400 MG tablet 400 mg PO TID Qty: 0 RF: 0 hydrocodone-acetaminophen [[place]] 5 MG/325 MG tablet 1 tab PO Q6HP PRNQty: 10 RF: 0 vit-iron fum-folic ac [Mynatal] 1 EACH capsule Qty: 0 RF: 0 ondansetron 4 mg tablet,disintegrating 4 mg PO Q6-8H PRN (Reason: nausea and vomiting) Qty: 10 RF: 0
[2021-01-10] MEDS: SUMAtriptan 25 MG TABLET PO (20:55)
[2021-01-10 21:40] VITALS: BP 116/56; PULSE 76; RESP 14; O2SAT 99
== END 2021-01-10 21:41 | disposition home or self-care (01) ==
PROVIDERS: Emergency Provider Emergency Medicine
DX: O26.891 Other specified pregnancy related conditions, first trimester (principal); Z3A.09 9 weeks gestation of pregnancy; G43.909 Migraine, unspecified, not intractable, without status migrainosus; R10.9 Unspecified abdominal pain
CPT/HCPCS: 99281; 99283

== ENCOUNTER 2021-02-10 20:45 | Emergency (ER) | payer OTHER, MEDICAID, SELFPAY ==
[2021-02-10 20:45] VITALS: BP 123/62; PULSE 83; RESP 16; TEMP 36.8; O2SAT 100; BMI 32.4
--- NOTE | 2021-02-10 21:33 | ED.EXTPRO ---
HPI - Extremity Problem General Chief complaint: Extremity Problem,Nontraumatic Stated complaint: fall, numbness left leg Time Seen by Provider: 02/10/21 20:53 Source: patient Mode of arrival: Ambulatory Limitations: no limitations History of Present Illness HPI Narrative: 25F former smoker with history of right sided sciatic presents with some pain and numbness in her left leg after a near fall earlier today. She is 13 weeks and stumbled earlier and spun awkwardly and fell sideways into a cabinet, with a primary point of impact being her left hip. She denies head or neck pain. She denies abdominal pain or cramping. She denies pelvic pain, cramping, bleeding, or leakage of fluid. She denies any loss of control of bowel or bladder. She denies lower extremity weakness or foot drop. She does have mild pain in her left lower back that radiates down her left leg and occasional tingling. She states her pain is worse when she moves and improves with rest. Onset (ago): hour(s) Pain Consistency: constant Location: left Severity scale (1-10): 4 Quality: stabbing Radiation: distal Relieving factors: rest Exacerbating factors: range of motion and walking Related Data Home Medications Medication Instructions Recorded Confirmed ferrous sulfate [Iron (ferrous 625 mg PO QDAY #0 06/16/16 sulfate)] ibuprofen 400 mg PO TID #0 06/16/16 oxycodone 5 mg PO Q4HP PRN #0 tab 06/16/16 vit-iron fum-folic ac #0 04/15/17 [Mynatal] Previous Rx's Medication Instructions Recorded hydrocodone-acetaminophen [[place]] 1 tab PO Q6HP PRN #10 tab 06/16/16 ondansetron 4 mg PO Q6-8H PRN #10 tab 11/29/18 sumatriptan succinate [Imitrex] See Rx Instructions .ROUTE 01/10/21 .COMPLEX #10 tab Allergies Allergy/AdvReac Type Severity Reaction Status Date / Time amoxicillin [AMOXICILLIN] Allergy Unknown Verified 02/10/21 20:59 tetracycline [TETRACYCLINE] Allergy Unknown Verified 02/10/21 20:59 Review of Systems Constitutional Constitutional: Denies chills, Denies fatigue, Denies fever(s), Denies frequent falls, Denies lethargy and Denies weakness Eyes Eyes: Denies change in vision, Denies eye discharge, Denies irritation and Denies loss of vision ENT Ears, Nose, Mouth, and Throat: Denies change in voice, Denies dizziness, Denies neck pain, Denies sore throat and Denies throat swelling Cardiovascular Cardiovascular: Denies chest pain, Denies irregular heart rhythm, Denies lightheadedness, Denies palpitations, Denies dyspnea, Denies dyspnea on exertion and Denies orthopnea Respiratory Respiratory: Denies cough, Denies dyspnea, Denies dyspnea on exertion and Denies wheezing Gastrointestinal Gastrointestinal: Denies abdominal pain, Denies change in bowel habits, Denies diarrhea, Denies nausea and Denies vomiting Musculoskeletal Musculoskeletal: Reports back pain, Denies neck pain, Reports numbness and Reports radiating pain into limb Integumentary/Breasts Skin/Breast: Denies pruritus, Denies erythema, Denies rash and Denies wounds Neurologic Neurologic: Denies behavioral changes, Denies confusion, Denies dizziness, Denies frequent falls, Denies loss of vision, Reports numbness and Denies weakness Psychiatric Psychiatric: Denies anxiety, Denies behavioral changes, Denies confusion, Denies depression, Denies homicidal ideation and Denies suicidal ideation Endocrine Endocrine: Denies fatigue, Denies flushing and Denies palpitations Hematologic/Lymphatic Hematologic/Lymphatic: Denies easy bruising Allergic/Immunologic Allergic/Immunologic: Denies urticaria, Denies throat swelling and Denies wheezing Patient History Medical History Healthy adult Surgical History No pertinent past surgical history Social History Smoking Status: Former smoker Smoking Status: Former smoker alcohol intake frequency: holidays/special occasions only Substance Use Type: does not use Exam Narrative Exam Narrative: GENERAL: [25] year old patient appears stated age. Well-nourished, well-developed patient, in mild distress. HEAD: Atraumatic. Normocephalic. EYES: Pupils equal round and reactive. Extraocular motions intact. No scleral icterus. No injection or drainage. ENT: Nose without bleeding, purulent drainage. Throat without erythema, tonsillar hypertrophy or exudate. Airway patent. NECK: Trachea midline. Non tender CARDIOVASCULAR: Regular rate and rhythm without murmurs, gallops, or rubs. RESPIRATORY: Clear to auscultation. Breath sounds equal bilaterally. No wheezes, rales, or rhonchi. GASTROINTESTINAL: Abdomen soft, non-tender, nondistended. EXTREMITIES: No edema or joint tenderness. BACK: wash tank tender but free of any obvious external abnormalities. Patient exam notes decreased range of motion and muscle spasm, but no CVA tenderness, or vertebral point tenderness. There are no symptoms of cauda equina such as saddle anesthesia, and decreased reflexes, decreased sensation or strength. NEURO: AOx3. SKIN: No rash or erythema of visible areas Initial Vital Signs Initial Vital Signs: Vital Signs Temperature 98.3 F 02/10/21 20:45 Pulse Rate 83 02/10/21 20:45 Respiratory Rate 16 02/10/21 20:45 Blood Pressure 123/62 02/10/21 20:45 Pulse Oximetry 100 02/10/21 20:45 Course Vital Signs Vital signs: Vital Signs - 8 hr 02/10/21 20:45 02/10/21 21:59 Temperature 98.3 F Pulse Rate 83 99 H Respiratory Rate 16 16 Blood Pressure 123/62 98/59 L Pulse Oximetry 100 99 MDM - Extremity (Nontraumatic) MDM Narrative Medical decision making narrative: Multiple etiologies of back pain considered including; Epidural abscess, cauda equina, mass occupying lesion, and other considered. No red flag symptoms such as saddle anesthesia, loss of control of bowel or bladder, fever, IV drug abuse. No direct trauma to the bone, no midline pain, no step-offs, no x-ray indicated. Extensive discussion with guarding return precautions and the need for follow-up. She has had her questions answered to her apparent satisfaction Discharge Plan Departure Patient Disposition: Home Clinical Impression: Left lumbar pain Qualifiers: Chronicity: acute Sciatica presence: with sciatica Sciatica laterality: sciatica of left side Qualified Code(s): M54.42 - Lumbago with sciatica, left side Instructions: Low Back Pain Activity Restrictions/Additional Instructions: *You have been diagnosed with [low back pain with radicular symptoms] *What to do: *Take medications as directed: Tylenol is the only recommended medication at this point time. Other options are potentially harmful for your baby *Follow up with your primary care provider in 2-3 days, call for an appointment. Let them know you were seen in the Emergency Department and that we ask that you be seen in follow up *Return to ER if you should have any new, worsening or concerning symptoms, such as [increasing pain, weakness of your leg, loss of control of bowel or bladder or other bothersome symptoms] Prescriptions: No Action oxycodone 5 MG tablet 5 mg PO Q4HP PRNQty: 0 RF: 0 ferrous sulfate [Iron (ferrous sulfate)] 325 MG tablet 625 mg PO QDAY Qty: 0 RF: 0 ibuprofen 400 MG tablet 400 mg PO TID Qty: 0 RF: 0 hydrocodone-acetaminophen [[place]] 5 MG/325 MG tablet 1 tab PO Q6HP PRNQty: 10 RF: 0 vit-iron fum-folic ac [Mynatal] 1 EACH capsule Qty: 0 RF: 0 sumatriptan succinate [Imitrex] 25 mg tablet See Rx Instructions .ROUTE .COMPLEX Qty: 10 RF: 0 ondansetron 4 mg tablet,disintegrating 4 mg PO Q6-8H PRN (Reason: nausea and vomiting) Qty: 10 RF: 0 Stand Alone Forms: Work Release Note
[2021-02-10 21:59] VITALS: BP 98/59; PULSE 99; RESP 16; O2SAT 99
== END 2021-02-10 21:59 | disposition home or self-care (01) ==
PROVIDERS: Emergency Provider Emergency Medicine
DX: M54.42 Lumbago with sciatica, left side (principal)
CPT/HCPCS: 99281

== ENCOUNTER 2021-07-25 16:38 | Outpatient (CLI) | payer OTHER, MEDICAID, SELFPAY ==
--- NOTE | 2021-07-25 17:28 | P.TNLD_ITS ---
Visit Information Visit Information Date of evaluation: 07/25/21 Primary OB Provider: Isabella Alejandra Reason for Evaluation: Yes non-stress test non-stress test reason: other (cholestasis) [facility] Medical History (Updated 07/25/21 @ 17:31 by Isabella Alejandra MD) Cholestasis during Healthy adult Surgical History (Updated 07/25/21 @ 16:20 by Isabella Alejandra MD) No pertinent past surgical history Social History Smoking Status: Former smoker Evaluation Evaluation Baseline heart rate: 135 Variability: Moderate (11-25) monitor accelerations: Present Monitor Decelerations: Absent Contraction Frequency (minutes): 0 Category of Tracing: Reactive Status: Category l Comments: Ultrasound was performed. Normal amniotic fluid volume. Good movement, tone, breathing. Reactive nonstress test. Diagnosis, Plan/Disposition Final Diagnosis (1) Cholestasis during : Status: Acute (2) 37 weeks gestation of : Status: Acute Plan/Disposition Plan: 09/01 biophysical profile. Patient is scheduled for repeat on 07/30/2021. Precautions reviewed with patient. OB Disposition: home
== END 2021-07-25 17:30 | disposition home or self-care (01) ==
LOC: OB 07-30 12:03
PROVIDERS: PCP Specialist; Referring Provider Specialist; Visit Provider Specialist
DX: O26.613 Liver and biliary tract disorders in pregnancy, third trimester (principal); K83.1 Obstruction of bile duct; Z3A.37 37 weeks gestation of pregnancy
CPT/HCPCS: 59025; 76815; G0378; G0379

== ENCOUNTER 2021-07-26 13:19 | Outpatient (CLI) | payer OTHER, MEDICAID, SELFPAY ==
--- NOTE | 2021-07-26 13:58 | P.TNLD_ITS ---
Visit Information Visit Information Date of evaluation: 07/26/21 Primary OB Provider: Isabella Alejandra Reason for Evaluation: Yes [facility] Medical History (Updated 07/26/21 @ 13:59 by Isabella Alejandra MD) Cholestasis during False labor Healthy adult Surgical History (Updated 07/25/21 @ 16:20 by Isabella Alejandra MD) No pertinent past surgical history Social History Smoking Status: Former smoker Evaluation Evaluation Baseline heart rate: 150 Variability: Moderate (11-25) monitor accelerations: Present Monitor Decelerations: Absent Category of Tracing: Reactive Status: Category l Non-invasive Membranes Rupture Test: negative Diagnosis, Plan/Disposition Final Diagnosis (1) 37 weeks gestation of : Status: Acute (2) False labor: Status: Acute Plan/Disposition Plan: Patient was concerned she might have broken her bag of water but not complaining of contractions or other concerns. AmniSure was negative. She will be discharged home she has scheduled in 5 days. OB Disposition: home
== END 2021-07-26 14:05 | disposition home or self-care (01) ==
LOC: LABOR 13:58 → OB 07-30 12:02
PROVIDERS: PCP Specialist; Referring Provider Specialist; Visit Provider Specialist
DX: Z03.71 Encounter for suspected problem with amniotic cavity and membrane ruled out (principal); O47.1 False labor at or after 37 completed weeks of gestation; Z3A.37 37 weeks gestation of pregnancy
CPT/HCPCS: 59025; 84112; G0378; G0379

== ENCOUNTER 2021-07-30 08:07 | Inpatient (IN) | payer OTHER, MEDICAID, SELFPAY ==
--- NOTE | 2021-07-30 | PATH_ITS ---
[facility] Accession Number: [id number] . 01 Material submitted: . fallopian tube - RIGHT AND LEFT FALLOPIAN TUBE . 01 Clinical history: . REPEAT C-SECTON . 02 Diagnosis: Right and Left Fallopian Tubes, Bilateral Salpingectomy: Complete cross sections of fallopian tubes x2 with scattered benign paratubal cysts (1-10 mm). Negative for atypia or malignancy. V 08/01/2021 1332 Local . 02 Electronically signed: . Leyda Hartley MD, Pathologist NPI- [id number] . 01 Gross description: . The specimen is received in formalin, labeled right and left fallopian tubes and consists of two fallopian tubes measuring 5.0 cm in length by 0.7 cm in diameter and 6.9 cm in length by 0.7 cm in diameter. The serosa is thorpe-pink and smooth and there are multiple paratubal cysts ranging from 0.1-1.0 cm. Sectioning reveals a thorpe mucosa and a stellate lumen measuring 0.2 cm in diameter. Patient Office Rep sections of each fallopian tube are submitted, to include the en face margin (blue), central cross sections and bisected fimbria, in cassettes A1-A2. (EA:[id number]) /MRV 07/31/2021 1029 Local . 02 Pathologist provided ICD-10: Z98.891, O26.619 . 02 CPT . 311157 Performed at: 01 [facility] [address] [id number] MD Quintin Canela MD Phone: [phone] Performed at: 02 [facility] [address] [place] [id number] MD Acacia Bowles MD Phone: [phone]
[2021-07-30] MEDS: LACTATED RINGERS 1,000 ML 100 ML IV (09:10)
[2021-07-30 09:20] VITALS: BP 126/76
--- NOTE | 2021-07-30 09:26 | PM.PREOP ---
Pre-operative Note COVID-19 COVID-19 status: Result pending Result date/Date tested (Pos, Neg/Pending): 07/30/21 Interval Note History & Physical reviewed/Exam performed by Physician: Yes Changes to H&P: No
--- NOTE | 2021-07-30 09:29 | P.HPOB_ITS ---
OB HPI Date/Time Date of admission: 07/30/21 Date Patient Seen: 07/30/21 Time Patient Seen: 09:29 History of Present Condition Chief complaint: REPEAT W/STERILIZATION : 5 Para: 4 Estimated Date of Delivery: 08/12/21 Estimated Gestational Age (weeks): 37 Narrative: Soheila Reese is a 26 year old female admitted for repeat C- section with bilateral tubal ligation for cholestasis in , 3 prior sections, wish for sterilization Indications Operative indications ( section): previous uterine surgery Other reason(s) for admission: Cholestasis in History of Present care: good care, initiated at week # (8), number of visits (11) and pounds weight gain (14) Dating criteria: LMP confirmed by 1st trimester US Ultrasounds: normal mid trimester US Obstetrical complications: labor (Treated twice) and other (Cholestasis in ) Preadmission Labs Blood type: 0 (-) negative -: Antibody screen: negative, HBsAG: negative, HIV: negative and RPR/VDLR: negative -: Chlamydia screen: not detected and Gonorrhea screen: not detected -: Rubella: immune and Varicella: immune HCAB: negative 1 hr GTT: 143 3 hr GTT: 1 hr (151), 2 hr (114) and 3 hr (153) Fasting blood glucose: 85 Prior (ies) History: See outpatient records 01/30/2013 female vaginal delivery, sections in 2013, 2015, 2016 one girl two boys Evaluation Evaluation Baseline heart rate: 130 Variability: Moderate (11-25) monitor accelerations: Present Monitor Decelerations: Absent Contraction Frequency (minutes): 5 Uterine Contraction Intensity: Mild Category of Tracing: Reactive Status: Category l PFSH Medical History (Updated 07/26/21 @ 13:59 by Isabella Alejandra MD) Cholestasis during False labor Healthy adult Surgical History No pertinent past surgical history Social History Smoking Status: Former smoker Meds Home Medications and Allergies Home Medications Medication Instructions Recorded Confirmed Type vitamin-ferrous fumarate 1 cap PO DAILY #0 04/15/17 07/30/21 History 65 mg iron-folic acid 1 mg capsule (Mynatal) sumatriptan succinate 25 mg tablet See Rx Instructions .ROUTE 01/10/21 07/30/21 Rx (Imitrex) .COMPLEX #10 tab ursodiol 500 mg tablet 500 mg PO Q4-6H tab 07/25/21 07/30/21 History Allergies Allergy/AdvReac Type Severity Reaction Status Date / Time amoxicillin [AMOXICILLIN] Allergy Unknown MOUTH SORES Verified 07/30/21 09:16 tetracycline [TETRACYCLINE] Allergy Unknown Verified 07/25/21 15:32 Review of Systems Review of Systems Narrative: Patient denies headaches, scotomata, epigastric pain. Good movement. No leakage of fluid. No contractions. Exam Vital Signs (past 8 hours): Blood pressure 126/76, pulse 75, temperature 98.4?- 07/30/21 09:20 Blood Pressure 126/76 Narrative Exam Narrative: HEENT exam within normal limits. Lungs are clear to auscultation percussion. Heart is regular rate and rhythm no S3-S4 murmurs. Abdomen is soft, nontender. Fetus is vertex. Extremities without edema and nontender Objective Labs Result Diagrams: 07/30/21 09:23 Assessment and Plan Assessment and Plan Assessment and Plan narrative: 37 and half week gestation with cholestasis in and 3 prior sections and wish for sterilization here for repeat low-transverse section and bilateral tubal resection.
[2021-07-30 09:36] LABS: Add Manual Diff / Slide Review NO; Basophils Absolute Auto 100 /uL (0-100); Basophils Percent Auto 0.7 % (0-2); Eosinophils Absolute Auto 0 /uL (0-450); Eosinophils Percent Auto 0.5 % (2-4); Hematocrit 32.5 % (36-46); Hemoglobin 10.7 g/dL (12.0-16.0); Lymphocytes Absolute Auto 1600 /uL (1100-4500); Lymphocytes Percent Auto 18.3 % (25-40); Mean Corpuscular HGB Conc 32.8 % (30-36); Mean Corpuscular Hemoglobin 27.8 PG (26-34); Mean Corpuscular Volume 84.8 fL (80-100); Monocytes Absolute Auto 700 /uL (0-900); Monocytes Percent Auto 8.2 % (3-14); Neutrophils Absolute Auto 6500 /uL (1500-7000); Neutrophils Percent Auto 72.3 % (50-75); Platelet Count 167 X10^3/uL (150-400); Red Blood Cell Count 3.83 X10^6/uL (4.0-5.2); Red Cell Distribution Width 13.7 % (11.6-14.8)
[2021-07-30 10:31] LABS: COVID19 - ADMIT (NP swab/PCR) Negative (Negative)
[2021-07-30] MEDS: ACETAMINOPHEN IV 1,000 MG/100 ML VIAL 400 MG IV (12:18)
--- NOTE | 2021-07-30 12:29 | SUR.OPER ---
Supine on Padded OR bed, head on pillow, safety belt at thigh, arms secured on padded arm boards at <90 degrees abduction. Bump under right buttock. Legs uncrossed with pillow under knees, gel pad to heels, tape over blanket to lower legs.
--- NOTE | 2021-07-30 12:36 | SUR.OPER ---
PLACENTA AND CORD BLOOD TO LABOR DEPARTMENT
[2021-07-30] MEDS: CEFAZOLIN 1 GM VIAL 2 GM IV (12:48)
[2021-07-30 13:24] VITALS: BP 1100/61; PULSE 61; RESP 18; TEMP 36.7; O2SAT 100
[2021-07-30 13:28] VITALS: BP 112/65; PULSE 64; RESP 18; O2SAT 99
[2021-07-30 13:33] VITALS: BP 118/67; PULSE 66; RESP 15; O2SAT 100
--- NOTE | 2021-07-30 13:37 | PM.OP.1 ---
Operative Date/Time/Diagnoses Date of procedure: 07/30/21 Time of procedure: 13:37 Pre-op diagnosis: 371/2 weeks gestation with 3 prior sections, cholestasis and wish for sterilization Post-op diagnosis: same Procedure & Clinicians Procedure: Repeat low-transverse section, lysis of adhesions, bilateral salpingectomies Same procedure as scheduled: Yes Indications: 3 prior sections with cholestasis in and wish for sterilization Surgeon: Isabella Alejandra Flight Teacher: Fany Carlin Click Yes if Unassisted: No Anesthesia Type: Spinal Operative Notes Findings: Adhesion of the uterus to the anterior abdominal wall on the left. Prior section incision we with extreme thinness. Adhesion of the omentum to the anterior abdominal wall on the left. Normal tubes, ovaries. Viable female infant weighing 6 lb 9 oz with Apgars of 8 and 9. Closure Type: primary Specimen(s): other (Bilateral fallopian tubes) Applied: catheter (Michael) Estimated Blood Loss (mL): 450 Blood products transfused: none Procedure in detail: The patient was brought to the operating room where she underwent a spinalfor anesthesia. She was placed in a supine position with a left lateral tilt. A Michael catheter was placed. Pulsatile stockings were placed and functional throughout the case. 2 g of Ancef were given IV prior to the incision. Warming was in place. The patient was prepped and draped in usual sterile fashion. A low transverse incision was made with a scalpel and the incision was carried down to the fascial layer which was incised transversely with scissors. The child care center assistant director did her side of the incision. The midline attachments are superiorly and inferiorly. Some bleeding was controlled Bovie. The rectus muscles were in the midline and the peritoneal incision was made with no damage to internal structures. The peritoneum was incised and superiorly and inferiorly. Due to the significant adhesion of the uterus to the anterior abdominal wall, careful dissection was performed removing the adhesion until the uterus was freed. Incision was stretched with the surgeon and child care center assistant director placing traction. Bladder blade was placed. The attempt to make a bladder flap resulted in entry into the uterus because the muscle layer was so thin. The incision was extended with stretching. The head was elevated out of the abdomen and with fundal pressure by the child care center assistant director the baby was delivered. The infant was bulb suctioned for clear fluid and handed off to the warmer. Cord blood was collected. The placenta delivered spontaneously with traction. The uterus was cleaned with clean laps. The uterine incision was closed in 2 layers of 0 chromic suture the first a running locking layer the second an imbricating layer. The child care center assistant director was helping to expose the incision. The areas where the uterus had been attached to the anterior abdominal wall were repaired with [id number] sutures and bleeding stopped with the Bovie. The ovaries and fallopian tubes were observed to be normal. The fallopian tube was grasped with a Lorton and the mesosalpinx tied off in 4 sutures of 2-0 Vicryl suture. The tube was removed from the uterus after clamping, cut and tied. Same procedure was performed on the left side. Gutters were cleaned of any remaining fluids. Adequate hemostasis was noted. The perineum was closed with 2-0 Vicryl suture. The fascia layer was closed with 0 Vicryl suture with 2 stitches. The child care center assistant director repairing half the incision with helping to retract and expose the incision for the other half. The incision was irrigated and adequate hemostasis noted. The incision was closed with interrupted 3-0 Vicryl sutures and then a subcuticular stitch of 4-0 Vicryl suture. Steri-Strips were placed. The uterus was massaged to remove any clots. The patient went to recovery room in good condition. Counts of instruments and sponges were correct. Dr. Carlin was present throughout the case to assist with retraction, fundal pressure to deliver the , and suturing half the fascia. Complications: none Post-operative Condition: stable Disposition: other ( Center) Plan for aftercare: Routine post section
[2021-07-30] MEDS: KETOROLAC 30 MG/ML VIAL IV ×2 (13:43→19:59)
[2021-07-30 13:48] VITALS: BP 116/65; PULSE 73; RESP 16; O2SAT 100
[2021-07-30 13:53] VITALS: BP 116/80; PULSE 90; RESP 12; O2SAT 100
[2021-07-31] MEDS: KETOROLAC 30 MG/ML VIAL IV ×2 (02:18→09:22)
[2021-07-31 07:23] LABS: Add Manual Diff / Slide Review NO; Basophils Absolute Auto 0 /uL (0-100); Basophils Percent Auto 0.3 % (0-2); Eosinophils Absolute Auto 0 /uL (0-450); Eosinophils Percent Auto 0.3 % (2-4); Hematocrit 31.2 % (36-46); Hemoglobin 10.2 g/dL (12.0-16.0); Lymphocytes Absolute Auto 1700 /uL (1100-4500); Lymphocytes Percent Auto 14.3 % (25-40); Mean Corpuscular HGB Conc 32.8 % (30-36); Mean Corpuscular Hemoglobin 27.8 PG (26-34); Mean Corpuscular Volume 84.7 fL (80-100); Monocytes Absolute Auto 1100 /uL (0-900); Monocytes Percent Auto 9.6 % (3-14); Neutrophils Absolute Auto 8800 /uL (1500-7000); Neutrophils Percent Auto 75.5 % (50-75); Platelet Count 152 X10^3/uL (150-400); Red Blood Cell Count 3.68 X10^6/uL (4.0-5.2); Red Cell Distribution Width 13.7 % (11.6-14.8); White Blood Cell Count 11.6 X10^3/uL (4.5-11.0)
--- NOTE | 2021-07-31 09:09 | PM.OBDS.1 ---
Discharge Providers Provider Date of admission: 07/30/21 08:07 Discharge Date: 07/31/21 Consults: 07/30/21 13:52 Consult to Human Resources Executive Assistant Routine Comment: Discharge provider: Isabella Alejandra MD Summary Hospital Course Date Patient Seen: 07/31/21 Time Patient Seen: 09:09 Diagnoses: 38 week gestation with cholestasis in , 3 prior sections, and wish for sterilization Hospital Course: Patient underwent a repeat low-transverse section with bilateral salpingectomies on 07/30/2021. Patient is doing well. No headaches, scotomata, epigastric pain. She is urinating and ambulating well. She is passing gas. Pain is under control. Mild bleeding. Itching is the same. Peripartum Data Delivery Method: Section (Repeat) Procedures: Repeat low-transverse section with bilateral salpingectomies complications: none 1: Gender: Female Disposition of : home Discharge Diagnosis (1) Delivery by section of full-term : Status: Acute (2) History of 3 sections: Status: Acute (3) Cholestasis during : Status: Acute Status at Discharge Cognitive/behavioral status at discharge: oriented Functional status at discharge: independent ambulation Overall status at discharge: patient is progressing back to baseline Time Spent with Patient Time attestation: Total time spent providing and/or coordinating discharge services: Time spent: Less than 30 minutes Objective Labs Result Diagrams: 07/31/21 06:45 Labs: Laboratory Results - last 24 hr 07/30/21 07/30/21 07/30/21 09:03 09:23 09:23 WBC 9.0 RBC 3.83 L Hgb 10.7 L Hct 32.5 L MCV 84.8 MCH 27.8 MCHC 32.8 RDW 13.7 Plt Count 167 Neut % (Auto) 72.3 Lymph % (Auto) 18.3 L Overton % (Auto) 8.2 Eos % (Auto) 0.5 L Baso % (Auto) 0.7 Neut # (Auto) 6500 Lymph # (Auto) 1600 Overton # (Auto) 700 Eos # (Auto) 0 Baso # (Auto) 100 SARS-CoV-2 (PCR) Negative Blood Type O Negative Antibody Screen Negative Maternal Bleed 07/31/21 07/31/21 06:45 06:45 WBC 11.6 H RBC 3.68 L Hgb 10.2 L Hct 31.2 L MCV 84.7 MCH 27.8 MCHC 32.8 RDW 13.7 Plt Count 152 Neut % (Auto) 75.5 H Lymph % (Auto) 14.3 L Overton % (Auto) 9.6 Eos % (Auto) 0.3 L Baso % (Auto) 0.3 Neut # (Auto) 8800 H Lymph # (Auto) 1700 [place]ton # (Auto) 1100 H Eos # (Auto) 0 Baso # (Auto) 0 SARS-CoV-2 (PCR) Blood Type Antibody Screen Maternal Bleed Negative Exam Vital Signs (past 8 hours): Blood pressure 133/82, pulse of 86, temperature 97.8? Oxygen Delivery Method Room Air Narrative Exam Narrative: Patient's abdomen is soft, nontender. Uterus is firm, at U, nontender. Dressing is clean, dry, intact. Mild lochia. Extremities without edema and nontender. Patient is O negative baby is Rh positive so she will receive RhoGAM prior to discharge. She is rubella immune and received Tdap in the 3rd trimester. Discharge Plan Discharge Plan Patient Disposition: Home Discharge orders & Medications Prescriptions: New ferrous sulfate 325 mg (65 mg iron) Tablet 325 mg PO DAILY Qty: 30 RF: 0 docusate sodium 100 mg Capsule 200 mg PO DAILY Qty: 20 RF: 0 ibuprofen 600 mg Tablet 600 mg PO Q6H PRN (Reason: Fever/Mild Pain (1-3)) Qty: 30 RF: 0 oxycodone-acetaminophen 5-325 mg tablet 1 tab PO Q4-6H PRN (Reason: pain) Qty: 30 RF: 0 Continued Mynatal 1 EACH capsule 1 cap PO DAILY Qty: 0 RF: 0 ursodiol 500 mg tablet 500 mg PO Q4-6H RF: 0 sumatriptan succinate [Imitrex] 25 mg tablet See Rx Instructions .ROUTE .COMPLEX Qty: 10 RF: 0 Follow up/Referrals: Isabella Alejandra MD [Physician] - 1 Week (Aquacel removal) Diet/Activity/Treatments Diet: Regular Activity: Nothing in vagina or lifting over 20 lb for 6 weeks Skin/Wound/Dressing Care Report to your healthcare provider any signs of infection, such as:: chills, fever and increased pain Dressing: Leave dressing on until 1 week postop appointment
[2021-07-31] MEDS: FERROUS SULFATE 325 MG TABLET PO (09:30)
[2021-07-31] MEDS: DOCUSATE 100 MG CAPSULE 200 MG PO (09:30)
[2021-07-31] MEDS: RHO(D) IMMUNE GLOBULIN 1,500 UNIT SYRINGE 1500 UNIT IM (09:31)
[2021-07-31 10:53] VITALS: BP 129/83; PULSE 96; RESP 16; TEMP 36.6
== END 2021-07-31 11:55 | disposition home or self-care (01) | DRG 540 ==
PROVIDERS: Admitting Provider Specialist; Referring Provider Specialist; Visit Provider Specialist
PROC: 10D00Z1 Extraction of Products of Conception, Low, Open Approach (ICD-10-PCS; CPT 59514; principal; 2021-07-30 10:45)
DX: O34.211 Maternal care for low transverse scar from previous cesarean delivery (principal); Z3A.37 37 weeks gestation of pregnancy; Z37.0 Single live birth; O26.62 Liver and biliary tract disorders in childbirth; K83.1 Obstruction of bile duct; Z30.2 Encounter for sterilization
CPT/HCPCS: 36415; 58611; 59050; 59514; 85025; 85461; 86850; 86900; 86901; 87635; C9803; J0131; J0690; J1885; J2274; J2590; J2790

== ENCOUNTER 2021-10-16 10:40 | Emergency (ER) | payer OTHER, MEDICAID, SELFPAY ==
[2021-10-16 11:02] VITALS: BP 130/80; PULSE 107; RESP 18; TEMP 36.6; O2SAT 98; BMI 33.3
--- NOTE | 2021-10-16 12:43 | ED.URI ---
HPI - URI/Sore Throat <Oskar Hurd PA-C - Last Filed: 10/16/21 19:47> General Chief Complaint: Upper Respiratory Symptoms Stated Complaint: Cough, runny nose Time Seen by Provider: 10/16/21 12:02 History of Present Illness HPI Narrative: Patient is a 26-year-old female presenting to the emergency department today for an evaluation of a sore throat that began 5 days ago. Patient has a 4-year-old son an 2-month-old daughter at home that all have also been experiencing similar symptoms. Patient reports associated fever, rhinorrhea, and cough. No chills, abdominal pain, nausea, vomiting, diarrhea, dysuria, or rash reported. No other concerns voiced at this time. Related Data Previous Rx's Medication Instructions Recorded sumatriptan succinate 25 mg tablet See Rx Instructions .ROUTE 01/10/21 (Imitrex) .COMPLEX #10 tab Allergies Allergy/AdvReac Type Severity Reaction Status Date / Time tetracycline [TETRACYCLINE] Allergy Unknown Verified 08/19/21 10:14 amoxicillin [AMOXICILLIN] AdvReac Unknown MOUTH SORES Verified 08/19/21 10:14 Review of Systems <Oskar Hurd PA-C - Last Filed: 10/16/21 19:47> Constitutional Constitutional: Denies chills, Denies fatigue, Reports fever(s), Denies frequent falls, Denies lethargy and Denies weakness ENT Ears, Nose, Mouth, and Throat: Denies change in voice, Denies dizziness, Reports nasal congestion, Denies neck pain, Reports sore throat, Denies throat swelling and Reports other (Rhinorrhea) Cardiovascular Cardiovascular: Denies chest pain, Denies irregular heart rhythm, Denies lightheadedness, Denies palpitations, Denies dyspnea, Denies dyspnea on exertion and Denies orthopnea Respiratory Respiratory: Reports cough, Denies dyspnea, Denies dyspnea on exertion and Denies wheezing Gastrointestinal Gastrointestinal: Denies abdominal pain, Denies change in bowel habits, Denies diarrhea, Denies nausea and Denies vomiting Genitourinary Genitourinary: Denies hematuria, Denies flank pain, Denies urinary incontinence and Denies urinary urgency Musculoskeletal Musculoskeletal: Denies neck pain Neurologic Neurologic: Denies dizziness, Denies frequent falls and Denies weakness Endocrine Endocrine: Denies fatigue and Denies palpitations Allergic/Immunologic Allergic/Immunologic: Denies urticaria, Denies throat swelling and Denies wheezing Patient History <Oskar Hurd PA-C - Last Filed: 10/16/21 19:47> Medical History Cholestasis during Healthy adult Surgical History History of 3 sections No pertinent past surgical history Social History Smoking Status: Former smoker Smoking Status: Former smoker alcohol intake frequency: holidays/special occasions only Substance Use Type: does not use Exam <Oskar Hurd PA-C - Last Filed: 10/16/21 19:47> Narrative Exam Narrative: GENERAL: 26 year old patient appears stated age. Well-developed patient, in no acute distress. HEAD: Atraumatic. Normocephalic. EYES: Pupils equal round and reactive. Extraocular motions intact. No scleral icterus. No injection or drainage. ENT: Nose without bleeding, purulent drainage. Throat without erythema, tonsillar hypertrophy or exudate. Airway patent. Tympanic membranes clear bilaterally, no erythema or bulging appreciated. NECK: Trachea midline. Non tender CARDIOVASCULAR: Regular rate and rhythm without murmurs, gallops, or rubs. RESPIRATORY: Clear to auscultation. Breath sounds equal bilaterally. No wheezes, rales, or rhonchi. GASTROINTESTINAL: Abdomen soft, non-tender, nondistended. EXTREMITIES: No edema or joint tenderness. BACK: Nontender without deformity or crepitance. No flank tenderness. NEURO: AOx3. SKIN: No rash or erythema of visible areas Initial Vital Signs Initial Vital Signs: Vital Signs Temperature 97.8 F 10/16/21 11:02 Pulse Rate 107 H 10/16/21 11:02 Respiratory Rate 18 10/16/21 11:02 Blood Pressure 130/80 10/16/21 11:02 Pulse Oximetry 98 10/16/21 11:02 <Miguel Fatima DO - Last Filed: 10/18/21 07:15> Initial Vital Signs Initial Vital Signs: Vital Signs Temperature 97.8 F 10/16/21 11:02 Pulse Rate 107 H 10/16/21 11:02 Respiratory Rate 18 10/16/21 11:02 Blood Pressure 130/80 10/16/21 11:02 Pulse Oximetry 98 10/16/21 11:02 Course <Oskar Hurd PA-C - Last Filed: 10/16/21 19:47> Course Course Narrative: Rapid strep ordered Vital Signs Vital signs: Vital Signs - 8 hr 10/16/21 13:30 Pulse Rate 100 H Respiratory Rate 20 Pulse Oximetry 99 <Miguel Fatima DO - Last Filed: 10/18/21 07:15> Vital Signs Vital signs: Vital Signs - 8 hr 10/16/21 13:30 Pulse Rate 100 H Respiratory Rate 20 Pulse Oximetry 99 MDM - URI/Sore Throat <Oskar Hurd PA-C - Last Filed: 10/16/21 19:47> Lab Data Labs: Point of Care Testing Rapid Strep A Negative MDM Narrative Medical decision making narrative: Patient is a 26-year-old female presenting to the emergency department today for an evaluation of a sore throat that began 5 days ago. To consider strep pharyngitis versus viral pharyngitis versus viral upper respiratory infection versus seasonal allergies versus allergic rhinitis. Strep returned negative. Patient has children who are in the emergency department with her today both tested positive for RSV. Discussed with the patient the likelihood that she is also experiencing viral upper respiratory infection symptoms and stressed the importance of symptomatic treatment. Strict return precautions discussed with the patient prior to discharge. <Miguel Fatima DO - Last Filed: 10/18/21 07:15> Lab Data Labs: Point of Care Testing Rapid Strep A Negative Discharge Plan Departure Patient Disposition: Home Clinical Impression: Upper respiratory infection Instructions: DI for Viral Upper Respiratory Infection -- Adult Activity Restrictions/Additional Instructions: *You have been diagnosed with viral upper respiratory infection *What to do: *Please continue to take your regular medications as directed. [ ] New medication prescriptions sent to your pharmacy: [ ] [ ] New medication written as a paper prescription [X] No new medications given *Please follow up with your primary care provider in the next 24-48 hours, call for an appointment. Let them know you were seen in the Emergency Department and that we ask that you be seen in follow up. We will electronically transmit a record of today's note if your PCP is in our system *If you do not have a primary care provider please contact the [facility] Resource line at [phone]. They will ask some questions about your medical history and help get you set up with a doctor in the community. *Return to Emergency Department if you should have any new, worsening or concerning symptoms, such as fever greater than 101 F, shaking chills, worsening shortness of breath, persistent vomiting or other bothersome symptoms. Prescriptions: No Action sumatriptan succinate [Imitrex] 25 mg tablet See Rx Instructions .ROUTE .COMPLEX Qty: 10 0RF Rx Instructions: take 1 tab at onset of headache; if no relief may repeat 1 tab after at least 2 hrs; max = 4 tabs/24 hr Referrals: Miscellaneous,Doctor, [Primary Care Provider] - <Miguel Fatima, - Last Filed: 10/18/21 07:15> Cosign ED Attending Cosignature Attestation: Dr Fatima Co-Sign Statement: I was available for consultation during this patient's emergency department visit. This chart is signed by myself for administrative purposes only. I did not have direct contact with this patient during this visit. They were seen independently by the APC.
[2021-10-16 13:30] VITALS: PULSE 100; RESP 20; O2SAT 99
== END 2021-10-16 13:30 | disposition home or self-care (01) ==
PROVIDERS: Emergency Provider Physician Assistant
DX: J02.8 Acute pharyngitis due to other specified organisms (principal)
CPT/HCPCS: 87880; 99281

== ENCOUNTER 2022-04-13 15:29 | Emergency (ER) | payer OTHER, MEDICAID, SELFPAY ==
[2022-04-13 15:34] VITALS: BP 131/82; PULSE 88; RESP 18; TEMP 36.7; O2SAT 98; BMI 30.7
--- NOTE | 2022-04-13 17:33 | ED.ABDPAIN ---
HPI - Abdominal Pain <Iman Lee DO - Last Filed: 04/25/22 02:06> General Chief Complaint: Abdominal Pain Stated Complaint: ABD pain X 2 days Time Seen by Provider: 04/13/22 16:30 Source: patient Mode of arrival: Ambulatory History of Present Illness HPI narrative: Patient is a 26-year-old healthy female who presents with abdominal pain. She says been ongoing for about 1 day. But periumbilical area. She is really sensitive to touch. Minimal nausea no vomiting no fever or chills. She has never had anything like this before. She denies any chest pain cough or shortness of breath or any other symptoms. Related Data Home Medications Medication Instructions Recorded Confirmed sumatriptan succinate 50 mg tablet 50 mg PO PRN tab 03/07/22 03/07/22 Previous Rx's Medication Instructions Recorded sumatriptan succinate 25 mg tablet See Rx Instructions .ROUTE 01/10/21 (Imitrex) .COMPLEX #10 tab Allergies Allergy/AdvReac Type Severity Reaction Status Date / Time tetracycline [TETRACYCLINE] Allergy Unknown Verified 03/07/22 08:45 amoxicillin [AMOXICILLIN] AdvReac Unknown MOUTH SORES Verified 03/07/22 08:45 Review of Systems <Iman Lee DO - Last Filed: 04/25/22 02:06> Review of Systems Narrative: GENERAL: Denies chills, fatigue, malaise, fever, sweats, travel HEENT: Denies sinus pain, ear pain, sore throat, difficulty swallowing, neck pain RESPIRATORY: Denies dyspnea, cough, wheezing, hemoptysis, sputum. CARDIOVASCULAR: Denies chest pain, palpitations, orthopnea, edema GASTROINTESTINAL: See HPI : Denies dysuria, frequency, incontinence, hematuria, urinary retention, flank pain. MUSCULOSKELETAL: Denies weakness, joint pain, or bony pain SKIN: No rash, no erythema, no pruritus NEUROLOGIC: Denies weakness, dizziness, headache, numbness, change in speech, confusion PSYCHIATRIC: No concerning psychosocial issues. 12 point review of systems is negative except for those stated above and HPI Patient History <Iman Lee DO - Last Filed: 04/25/22 02:06> Medical History Cholestasis during Healthy adult Surgical History History of 3 sections No pertinent past surgical history Social History Smoking Status: Former smoker Smoking Status: Former smoker alcohol intake frequency: holidays/special occasions only Substance Use Type: does not use Exam <Iman Lee DO - Last Filed: 04/25/22 02:06> Initial Vital Signs Initial Vital Signs: Vital Signs Temperature 98.0 F 04/13/22 15:34 Pulse Rate 88 04/13/22 15:34 Respiratory Rate 18 04/13/22 15:34 Blood Pressure 131/82 04/13/22 15:34 Pulse Oximetry 98 04/13/22 15:34 GENERAL: Pleasant 26-year-old female HEENT: Head atraumatic,EOMI, pupils reactive, face symmetric, moist mucous membranes CARDIOVASCULAR: Regular rate and rhythm without murmurs, rubs or gallops. RESPIRATORY: Breath sounds equal bilaterally, no wheezes rales or rhonchi. ABDOMEN: Soft, obese tender periumbilical area no rash EXTREMITIES: Normal range of motion, no clubbing or edema. Neurovascularly intact NEUROLOGICAL: Alert and oriented x4.Normal gait and speech. SKIN: Warm, dry, no laceration, no petechiae, no rashes or lesions. <Norris Scott DO - Last Filed: 04/14/22 01:44> Initial Vital Signs Initial Vital Signs: Vital Signs Temperature 98.0 F 04/13/22 15:34 Pulse Rate 88 04/13/22 15:34 Respiratory Rate 18 04/13/22 15:34 Blood Pressure 131/82 04/13/22 15:34 Pulse Oximetry 98 04/13/22 15:34 Course <Iman Lee DO - Last Filed: 04/25/22 02:06> Orders Ordered: Discontinued Medications Ketorolac Tromethamine (Ketorolac 30 Mg/Ml Vial) 30 mg IV NOW ONE Stop: 04/13/22 17:38 Last Admin: 04/13/22 17:59 Dose: 30 mg Documented by: FRANSISCO Ondansetron HCl (Ondansetron 4 Mg/2 Ml Inj) 4 mg IV NOW ONE Stop: 04/13/22 17:38 Last Admin: 04/13/22 18:00 Dose: 4 mg Documented by: FRANSISCO Vital Signs Vital signs: Vital Signs - 8 hr 04/13/22 19:51 04/13/22 21:41 Pulse Rate 63 70 Respiratory Rate 17 16 Blood Pressure 113/56 L 107/68 Pulse Oximetry 99 99 <Norris Scott DO - Last Filed: 04/14/22 01:44> Orders Ordered: Discontinued Medications Ketorolac Tromethamine (Ketorolac 30 Mg/Ml Vial) 30 mg IV NOW ONE Stop: 04/13/22 17:38 Last Admin: 04/13/22 17:59 Dose: 30 mg Documented by: FRANSISCO Ondansetron HCl (Ondansetron 4 Mg/2 Ml Inj) 4 mg IV NOW ONE Stop: 04/13/22 17:38 Last Admin: 04/13/22 18:00 Dose: 4 mg Documented by: FRANSISCO Vital Signs Vital signs: Vital Signs - 8 hr 04/13/22 19:51 04/13/22 21:41 Pulse Rate 63 70 Respiratory Rate 17 16 Blood Pressure 113/56 L 107/68 Pulse Oximetry 99 99 MDM - Abdominal Pain <Iman Lee DO - Last Filed: 04/25/22 02:06> Lab Data Result diagrams: 04/13/22 17:57 04/13/22 17:57 Labs: Lab Results 04/13/22 04/13/22 Range/Units 17:57 17:57 WBC 9.1 (4.5-11.0) X10^3/uL RBC 4.13 (4.0-5.2) X10^6/uL Hgb 12.0 (12.0-16.0) g/dL Hct 35.7 L (36-46) % MCV 86.3 (80-100) fL MCH 29.1 (26-34) PG MCHC 33.7 (30-36) % RDW 13.9 (11.6-14.8) % Plt Count 255 (150-400) X10^3/uL Neut % (Auto) 62.9 (50-75) % Lymph % (Auto) 28.6 (25-40) % [place] % (Auto) 7.0 (3-14) % Eos % (Auto) 1.0 L (2-4) % Baso % (Auto) 0.5 (0-2) % Neut # (Auto) 5700 (9709-0053) /uL Lymph # (Auto) 2600 (4214-7703) /uL [place] # (Auto) 600 (0-900) /uL Eos # (Auto) 100 (0-450) /uL Baso # (Auto) 0 (0-100) /uL Sodium 139 (137-145) mmol/L Potassium 3.8 (3.4-5.1) mmol/L Chloride 105 (98-107) mmol/L Carbon Dioxide 27 (22-32) mmol/L BUN 10 (7-17) mg/dL Creatinine 0.67 (0.52-1.04) mg/dL Estimated GFR > 60 (>60) mL/min BUN/Creatinine Ratio 14.9 (6-22) Glucose 91 (70-100) mg/dL Calcium 9.0 (8.4-10.2) mg/dL Total Bilirubin 0.5 (0.2-1.3) mg/dL AST 28 (14-36) IU/L ALT 22 (<35) IU/L Alkaline Phosphatase 81 (38-126) U/L Total Protein 7.8 (6.3-8.2) g/dL Albumin 4.5 (3.5-5.0) g/dL Globulin 3.3 (1.7-4.1) g/dL Albumin/Globulin Ratio 1.4 (1.0-2.8) Lipase 47 (23-300) U/L Point of care testing: Urine Dip Bedside Urine Glucose Negative Bedside Urine Bilirubin - Negative Bedside Urine Ketone - Negative Urine Specific [place] 1.020 Bedside Urine Occult Blood - Negative Bedside Urine pH 6.5 Bedside Urine Protein - Negative Bedside Urine Urobilinogen - Negative Bedside Urine Nitrite - Negative Bedside Urine Leukocytes - Negative Esterase MDM Narrative Medical decision making narrative: Awaiting blood work. Not sure if she needs CT at this time. Patient signed out to Dr. Scott for disposition. <Norris Scott, DO - Last Filed: 04/14/22 01:44> Lab Data Labs: Lab Results 04/13/22 04/13/22 Range/Units 17:57 17:57 WBC 9.1 (4.5-11.0) X10^3/uL RBC 4.13 (4.0-5.2) X10^6/uL Hgb 12.0 (12.0-16.0) g/dL Hct 35.7 L (36-46) % MCV 86.3 (80-100) fL MCH 29.1 (26-34) PG MCHC 33.7 (30-36) % RDW 13.9 (11.6-14.8) % Plt Count 255 (150-400) X10^3/uL Neut % (Auto) 62.9 (50-75) % Lymph % (Auto) 28.6 (25-40) % [place] % (Auto) 7.0 (3-14) % Eos % (Auto) 1.0 L (2-4) % Baso % (Auto) 0.5 (0-2) % Neut # (Auto) 5700 (2400-1625) /uL Lymph # (Auto) 2600 (3210-1814) /uL [place] # (Auto) 600 (0-900) /uL Eos # (Auto) 100 (0-450) /uL Baso # (Auto) 0 (0-100) /uL Sodium 139 (137-145) mmol/L Potassium 3.8 (3.4-5.1) mmol/L Chloride 105 (98-107) mmol/L Carbon Dioxide 27 (22-32) mmol/L BUN 10 (7-17) mg/dL Creatinine 0.67 (0.52-1.04) mg/dL Estimated GFR > 60 (>60) mL/min BUN/Creatinine Ratio 14.9 (6-22) Glucose 91 (70-100) mg/dL Calcium 9.0 (8.4-10.2) mg/dL Total Bilirubin 0.5 (0.2-1.3) mg/dL AST 28 (14-36) IU/L ALT 22 (<35) IU/L Alkaline Phosphatase 81 (38-126) U/L Total Protein 7.8 (6.3-8.2) g/dL Albumin 4.5 (3.5-5.0) g/dL Globulin 3.3 (1.7-4.1) g/dL Albumin/Globulin Ratio 1.4 (1.0-2.8) Lipase 47 (23-300) U/L Point of care testing: Urine Dip Bedside Urine Glucose Negative Bedside Urine Bilirubin - Negative Bedside Urine Ketone - Negative Urine Specific [place] 1.020 Bedside Urine Occult Blood - Negative Bedside Urine pH 6.5 Bedside Urine Protein - Negative Bedside Urine Urobilinogen - Negative Bedside Urine Nitrite - Negative Bedside Urine Leukocytes - Negative Esterase Imaging Data Abdominal x-ray: Radiologist's Impression: [address] [address] XRay Report Signed Patient: Soheila Carlos MR#: [id number] : 1995 Acct:[id number] Age/Sex: 26 / F Date of Service: 04/13/22 Loc: ED Accession Number: [id number] ?? Procedure: XR acute abdomen series Ordering Provider: Norris Scott D.O. PROCEDURE:? XR ACUTE ABDOMEN SERIES ? INDICATIONS:? left sided abdominal pain ? TECHNIQUE:? One view chest and two views of the abdomen were acquired.? ? COMPARISON:? None. ? FINDINGS:? ? Surgical changes and devices:? None.? ? Chest:? Lungs are clear.? Heart size is normal.? No pleural effusions.? No pneumoperitoneum.? ? Abdomen:? Bowel gas pattern is normal.? No suspicious calcifications.? ? Bones:? No suspicious bony lesions.? ? IMPRESSION:? ? 1. No acute intra-abdominal radiographic abnormality.? ? ? Dictated by: Quintin Rivera M.D. on 04/13/2022 at 21:54 ? ? Approved by: Quintin Rivera M.D. on 04/13/2022 at 21:54 ? MDM Narrative Medical decision making narrative: Awaiting blood work. Not sure if she needs CT at this time. Patient signed out to Dr. Scott for disposition. [[id number]] (Tyler) Patient received in sign out from Dr. Henderson I have reviewed the clinical course and performed an independent history and physical exam. She is resting comfortably, x-ray and imaging are reassuring. She reports a colicky type abdominal pain at has no obvious provocation or palliation. Pain is well controlled and she is tolerating orals. We discussed the utility of advanced imaging and sure the opinion that it is unlikely to change the plan or reveal any significant underlying problems. She has been given extensive return precautions and questions answered to her apparent satisfaction Discharge Plan Departure Patient Disposition: Home Clinical Impression: Abdominal pain Instructions: DI for Abdominal Pain-Adult Activity Restrictions/Additional Instructions: *You have been diagnosed with [abdominal pain] * As we discussed your history and physical exam as well as labs and imaging are very reassuring. There is no evidence of any severe diagnoses that would require a specific or immediate intervention. *What to do: *Please continue to take your regular medications as directed. [x ] New medication prescriptions sent to your pharmacy: [ ] *Please follow up with your primary care provider in 2-3 days, call for an appointment. Let them know you were seen in the Emergency Department and that we ask that you be seen in follow up. We will electronically transmit a record of today's note if your PCP is in our system *Please consider a clear liquid diet for the next 24-48 hours and then slowly advance to regular as tolerated. Also, try to avoid alcohol, nicotine, caffeine, spicy, acidic or fatty foods as this may worsen your symptoms *If you do not have a primary care provider please contact the [facility] Resource line at [phone]. They will ask some questions about your medical history and help get you set up with a doctor in the community. *Return to Emergency Department if you should have any new, worsening or concerning symptoms, such as [fever greater than 101 F, shaking chills, worsening pain, persistent vomiting or other bothersome symptoms] Prescriptions: No Action sumatriptan succinate 50 mg tablet 50 mg PO PRN (Reason: migraine headache) 0RF Label Comments: TAKE 1 TABLET BY MOUTH NEEDED FOR MIGRAINE. MAY REPEAT ONE MORE TABLET IN TWO HOURS IF NEEDED. MAXIMUM DOSE OF TWO DAILY. Rx Instructions: TAKE 1 TABLET BY MOUTH NEEDED FOR MIGRAINE. MAY REPEAT ONE MORE TABLET IN TWO HOURS IF NEEDED. MAXIMUM DOSE OF TWO DAILY. sumatriptan succinate [Imitrex] 25 mg tablet See Rx Instructions .ROUTE .COMPLEX Qty: 10 0RF Rx Instructions: take 1 tab at onset of headache; if no relief may repeat 1 tab after at least 2 hrs; max = 4 tabs/24 hr Referrals: Miscellaneous,Doctor, MD [Primary Care Provider] -
[2022-04-13] MEDS: KETOROLAC 30 MG/ML VIAL IV (17:59)
[2022-04-13] MEDS: ONDANSETRON 4 MG/2 ML INJ IV (18:00)
[2022-04-13 18:49] LABS: Add Manual Diff / Slide Review NO; Basophils Absolute Auto 0 /uL (0-100); Basophils Percent Auto 0.5 % (0-2); Eosinophils Absolute Auto 100 /uL (0-450); Hematocrit 35.7 % (36-46); Lymphocytes Absolute Auto 2600 /uL (1100-4500); Lymphocytes Percent Auto 28.6 % (25-40); Mean Corpuscular HGB Conc 33.7 % (30-36); Mean Corpuscular Hemoglobin 29.1 PG (26-34); Mean Corpuscular Volume 86.3 fL (80-100); Monocytes Absolute Auto 600 /uL (0-900); Neutrophils Absolute Auto 5700 /uL (1500-7000); Neutrophils Percent Auto 62.9 % (50-75); Platelet Count 255 X10^3/uL (150-400); Red Blood Cell Count 4.13 X10^6/uL (4.0-5.2); Red Cell Distribution Width 13.9 % (11.6-14.8); White Blood Cell Count 9.1 X10^3/uL (4.5-11.0)
[2022-04-13 18:57] LABS: Alanine Aminotransferase 22 IU/L (<35); Albumin 4.5 g/dL (3.5-5.0); Albumin Globulin Ratio 1.4 (1.0-2.8); Alkaline Phosphatase 81 U/L (38-126); Aspartate Aminotransferase 28 IU/L (14-36); BUN Creatinine Ratio 14.9 (6-22); Bilirubin Total 0.5 mg/dL (0.2-1.3); Blood Urea Nitrogen 10 mg/dL (7-17); Carbon Dioxide 27 mmol/L (22-32); Chloride 105 mmol/L (98-107); Estimated Glomerular Filt Rate > 60 mL/min (>60); Globulin 3.3 g/dL (1.7-4.1); Glucose 91 mg/dL (70-100); HEMOLYSIS < 15 (0-50); Lipase 47 U/L (23-300); Potassium 3.8 mmol/L (3.4-5.1); Sodium 139 mmol/L (137-145); Total Protein 7.8 g/dL (6.3-8.2)
[2022-04-13 19:51] VITALS: BP 113/56; PULSE 63; RESP 17; O2SAT 99
--- NOTE | 2022-04-13 20:45 | DI.RAD.S_ITS ---
PROCEDURE: XR ACUTE ABDOMEN SERIES INDICATIONS: left sided abdominal pain TECHNIQUE: One view chest and two views of the abdomen were acquired. COMPARISON: None. FINDINGS: Surgical changes and devices: None. Chest: Lungs are clear. Heart size is normal. No pleural effusions. No pneumoperitoneum. Abdomen: Bowel gas pattern is normal. No suspicious calcifications. Bones: No suspicious bony lesions. IMPRESSION: 1. No acute intra-abdominal radiographic abnormality. Dictated by: Quintin Rivera M.D. on 04/13/2022 at 21:54 Approved by: Quintin Rivera M.D. on 04/13/2022 at 21:54
[2022-04-13 21:41] VITALS: BP 107/68; PULSE 70; RESP 16; O2SAT 99
== END 2022-04-13 21:46 | disposition home or self-care (01) ==
PROVIDERS: Emergency Medicine; Emergency Provider Emergency Medicine
DX: R10.9 Unspecified abdominal pain (principal)
CPT/HCPCS: 36415; 74022; 80053; 81003; 83690; 85025; 96374; 96375; 99284; J1885; J2405

== ENCOUNTER → 2022-06-03 14:09 | Outpatient (CLI) | payer OTHER, MEDICAID, SELFPAY | PROVIDERS: Visit Provider Physician Assistant | DX: J31.2 Chronic pharyngitis (principal) | CPT/HCPCS: 87070; 87077; 87147; 87186; 87880 ==

== ENCOUNTER 2022-07-12 14:20 | Emergency (ER) | payer OTHER, MEDICAID, SELFPAY ==
[2022-07-12 14:26] VITALS: BP 116/73; PULSE 85; RESP 14; TEMP 36.2; O2SAT 98; BMI 30.9
--- NOTE | 2022-07-12 14:29 | DI.RAD.S_ITS ---
PROCEDURE: XR WRIST RT MIN 3V INDICATIONS: hand and wrist pain TECHNIQUE: 4 views of the wrist were acquired. COMPARISON: None. FINDINGS: Bones: No fractures or dislocations. No suspicious bony lesions. Scaphoid view: Questionable lucency at the radial waist. Soft tissues: No suspicious soft tissue calcifications. IMPRESSION: No displaced fracture. There is questionable lucency at the radial waist of the scaphoid, which may represent a vascular channel. Correlate for point tenderness. Consider repeat radiography or cross-sectional imaging if there is further clinical concern. Dictated by: Kristopher Quezada M.D. on 07/12/2022 at 17:35 Approved by: Kristopher Quezada M.D. on 07/12/2022 at 17:39
--- NOTE | 2022-07-12 14:29 | DI.RAD.S_ITS ---
PROCEDURE: XR HAND RT MIN 3V INDICATIONS: hand and wrist pain TECHNIQUE: 3 views of the hand(s) acquired. COMPARISON: None. FINDINGS: Bones: No fractures or dislocations. Carpal bones are normally aligned. No suspicious bony lesions. Soft tissues: No suspicious soft tissue calcifications. IMPRESSION: No acute radiographic abnormality. If there is high concern for occult injury, consider repeat radiography or cross-sectional imaging. Dictated by: Kristopher Quezada M.D. on 07/12/2022 at 17:33 Approved by: Kristopher Quezada M.D. on 07/12/2022 at 17:35
[2022-07-12 17:06] VITALS: PULSE 70; O2SAT 100
[2022-07-12 17:30] VITALS: BP 109/61; PULSE 76; O2SAT 100
--- NOTE | 2022-07-12 17:43 | ED.UPPEXIN ---
HPI - Extremity Injury (Upper) <Levi Scott PA-C - Last Filed: 07/12/22 18:24> General Chief Complaint: Extremity Injury, Upper Stated Complaint: RT WRIST SMOOSHED BETWEEN WALL & METAL DOOR Time Seen by Provider: 07/12/22 14:26 Source: patient Mode of arrival: Ambulatory History of Present Illness HPI narrative: 27-year-old female who presents to the emergency room today with complaint of pain to the right hand and wrist that started after her hand was crushed in a door yesterday. The injury happened yesterday but she is concerned because she has difficulty holding onto things when she is at work. 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 Has not taken any medications for pain this never had this type of injury before. Related Data Home Medications Medication Instructions Recorded Confirmed sumatriptan succinate 50 mg tablet 50 mg PO PRN migraine headache 03/07/22 06/03/22 Previous Rx's Medication Instructions Recorded sumatriptan succinate 25 mg tablet See Rx Instructions PO .COMPLEX 01/10/21 (Imitrex) #10 tabs azithromycin 250 mg tablet See Rx Instructions PO .COMPLEX #6 06/04/22 tabs Allergies Allergy/AdvReac Type Severity Reaction Status Date / Time tetracycline [TETRACYCLINE] Allergy Unknown Verified 07/12/22 14:26 amoxicillin [AMOXICILLIN] AdvReac Unknown MOUTH SORES Verified 07/12/22 14:26 Review of Systems <Levi Scott PA-C - Last Filed: 07/12/22 18:24> Review of Systems Narrative: R.O.S.: General: No fever, chills or fatigue. Cardiovascular: No chest pain or palpitations Respiratory: No S.O.B. HEENT: No congestion, ear pain, rhinorrhea, sore throat or tinnitus Gastrointestinal: No nausea or vomiting Skin: No rash or associated abnormalities Neurological: Awake, alert and in not apparent distress. No Headaches, changes in vision or other related neurological concerns. Musculoskeletal: Right hand pain and weakness. Patient History <Levi Scott PA-C - Last Filed: 07/12/22 18:24> Medical History Cholestasis during Healthy adult Surgical History History of 3 sections No pertinent past surgical history Social History Smoking Status: Former smoker Smoking Status: Former smoker alcohol intake frequency: holidays/special occasions only Substance Use Type: does not use Exam <Levi Scott PA-C - Last Filed: 07/12/22 18:24> Narrative Exam Narrative: Physical Exam: ? General: normal appearance, well developed, well nourished, alert, and awake. Not in acute distress. ? Head: Normocephalic, no lesions. Chest: Lungs CTAB, no rales, rhonchi or wheezes. ?? Heart: RRR, no murmurs, rubs or gallops. Eyes: PERRLA, EOM's full, conjunctivae clear. ? Neuro: Physiological, no localizing findings, CN3-12 intact. ?? Extremities: Warm, well perfused, FROM, no deformities, no edema. ?? Skin: Normal, no rashes, no lesions noted. ?? PSYCHIATRIC: The mood is good, no blunted affect. Speech is clear. Thought process is linear, thought content is appropriate. The voice is without significant inflection. Musculoskeletal: Right hand has tenderness palpation over base of the dorsal wrist in medial distal forearm area. The hand has good range of motion with decreased strength for pain. The right hand has capillary refill and intact sensation to touch. The hand has negative snuffbox tenderness and negative pain elicited with scaphoid decompression. Initial Vital Signs Initial Vital Signs: Vital Signs Temperature 97.2 F L 07/12/22 14:26 Pulse Rate 85 07/12/22 14:26 Respiratory Rate 14 07/12/22 14:26 Blood Pressure 116/73 07/12/22 14:26 Pulse Oximetry 98 07/12/22 14:26 Oxygen Delivery Method 07/12/22 14:26 <Norris Scott DO - Last Filed: 07/13/22 11:32> Initial Vital Signs Initial Vital Signs: Vital Signs Temperature 97.2 F L 07/12/22 14:26 Pulse Rate 85 07/12/22 14:26 Respiratory Rate 14 07/12/22 14:26 Blood Pressure 116/73 07/12/22 14:26 Pulse Oximetry 98 07/12/22 14:26 Oxygen Delivery Method 07/12/22 14:26 Course <Levi Scott PA-C - Last Filed: 07/12/22 18:24> Orders Ordered: ED Orders 07/12/22 14:29 XR hand RT min 3V Stat XR wrist RT min 3V Stat Vital Signs Vital signs: Vital Signs - 8 hr 07/12/22 14:26 07/12/22 17:06 07/12/22 17:30 Temperature 97.2 F L Pulse Rate 85 70 Respiratory Rate 14 Blood Pressure 116/73 109/61 Pulse Oximetry 98 100 Oxygen Delivery Method Room Air 07/12/22 17:30 07/12/22 18:00 07/12/22 18:00 Temperature Pulse Rate 76 71 Respiratory Rate Blood Pressure 109/69 Pulse Oximetry 100 100 Oxygen Delivery Method 07/12/22 18:06 07/12/22 18:06 Temperature Pulse Rate 76 Respiratory Rate Blood Pressure 130/69 Pulse Oximetry 100 Oxygen Delivery Method <Norris Scott DO - Last Filed: 07/13/22 11:32> Orders Ordered: ED Orders 07/12/22 14:29 XR hand RT min 3V Stat XR wrist RT min 3V Stat Vital Signs Vital signs: Vital Signs - 8 hr 07/12/22 14:26 07/12/22 17:06 07/12/22 17:30 Temperature 97.2 F L Pulse Rate 85 70 Respiratory Rate 14 Blood Pressure 116/73 109/61 Pulse Oximetry 98 100 Oxygen Delivery Method Room Air 07/12/22 17:30 07/12/22 18:00 07/12/22 18:00 Temperature Pulse Rate 76 71 Respiratory Rate Blood Pressure 109/69 Pulse Oximetry 100 100 Oxygen Delivery Method 07/12/22 18:06 07/12/22 18:06 Temperature Pulse Rate 76 Respiratory Rate Blood Pressure 130/69 Pulse Oximetry 100 Oxygen Delivery Method MDM - Extremity Injury (Upper) <THONY Miranda Last Filed: 07/12/22 18:24> Imaging Data Extremity x-ray #1: Radiologist's Impression: PROCEDURE:? XR HAND RT MIN 3V ? INDICATIONS:? hand and wrist pain ? TECHNIQUE:? 3 views of the hand(s) acquired.? ? COMPARISON:? None. ? FINDINGS:? ? Bones:? No fractures or dislocations.? Carpal bones are normally aligned.? No suspicious bony lesions.? ? Soft tissues:? No suspicious soft tissue calcifications.? ? ? IMPRESSION:? No acute radiographic abnormality.? If there is high concern for occult injury, consider repeat radiography or cross-sectional imaging.? ? ? Dictated by: Kristopher Quezada M.D. on 07/12/2022 at 17:33 ? ? Approved by: Kristopher Quezada M.D. on 07/12/2022 at 17:35 ? Extremity x-ray #2: Radiologist's Impression: PROCEDURE:? XR WRIST RT MIN 3V ? INDICATIONS: hand and wrist pain ? TECHNIQUE:? 4 views of the wrist were acquired.? ? COMPARISON:? None. ? FINDINGS:? ? Bones:? No fractures or dislocations.? No suspicious bony lesions.? ? Scaphoid view:? Questionable lucency at the radial waist. ? Soft tissues:? No suspicious soft tissue calcifications.? ? IMPRESSION:? No displaced fracture.? There is questionable lucency at the radial waist of the scaphoid, which may represent a vascular channel.? Correlate for point tenderness.? Consider repeat radiography or cross-sectional imaging if there is further clinical concern.? ? ? Dictated by: Kristopher Quezada M.D. on 07/12/2022 at 17:35 ? ? Approved by: Kristopher Quezada M.D. on 07/12/2022 at 17:39 ? MDM Narrative Medical decision making narrative: Patient is a 27-year-old female who presents to the emergency room today with complaint of pain and weakness to the right hand that occurred after her hand was crushed in door yesterday. He is here in emergency room today because she tried to use the hand but noticed it was weak and that she was dropping things and she was trying to work in the kitchen. X-ray does not reveal a scaphoid fracture but recommends repeat or additional imaging if physical exam reveals concerns. This patient has the mechanism and questionable x-ray findings for this provider will order the thumbs spica for 6 weeks and advised patient to follow-up with her PCP next week. Patient agrees with plan. Discharge Plan Departure Patient Disposition: Home Clinical Impression: Crushing injury of right hand, Scaphoid fracture Instructions: Wrist Fracture, DI for Hand Injury Activity Restrictions/Additional Instructions: *You have been diagnosed with [scaphoid fracture of the right hand.] You have been issued a splint for your right hand. I suggest you wear the splint for a minimum of 6 weeks. I also suggested follow-up with the PCP next week for further instructions. I suggest you take [id number] nonsteroidal anti-inflammatories for pain. I will suggest to ice and elevate the extremity for the next few days. Please return to the emergency room should any emergent concerns arise. *What to do: *Please continue to take your regular medications as directed. [ ] New medication prescriptions sent to your pharmacy: [ ] [ ] New medication written as a paper prescription [x] No new medications given *Please follow up with your primary care provider in 2-3 days, call for an appointment. Let them know you were seen in the Emergency Department and that we ask that you be seen in follow up. We will electronically transmit a record of today's note if your PCP is in our system *If you do not have a primary care provider please contact the [facility] Resource line at [phone]. They will ask some questions about your medical history and help get you set up with a doctor in the community. *Return to Emergency Department if you should have any new, worsening or concerning symptoms, such as [fever greater than 101 F, shaking chills, worsening pain, persistent vomiting or other bothersome symptoms] Prescriptions: No Action azithromycin 250 mg tablet See Rx Instructions PO .COMPLEX Qty: 6 0RF Rx Instructions: take 500 mg today (day 1), then 250 mg for 4 days (days 2-5) PO sumatriptan succinate 50 mg tablet 50 mg PO PRN (Reason: migraine headache) Label Comments: TAKE 1 TABLET BY MOUTH NEEDED FOR MIGRAINE. MAY REPEAT ONE MORE TABLET IN TWO HOURS IF NEEDED. MAXIMUM DOSE OF TWO DAILY. Rx Instructions: TAKE 1 TABLET BY MOUTH NEEDED FOR MIGRAINE. MAY REPEAT ONE MORE TABLET IN TWO HOURS IF NEEDED. MAXIMUM DOSE OF TWO DAILY. sumatriptan succinate [Imitrex] 25 mg tablet See Rx Instructions .ROUTE .COMPLEX Qty: 10 0RF Rx Instructions: take 1 tab at onset of headache; if no relief may repeat 1 tab after at least 2 hrs; max = 4 tabs/24 hr Referrals: Miscellaneous,Doctor, MD [Primary Care Provider] - Visit Report Forms: Patient Portal/API <Norris Scott DO - Last Filed: 07/13/22 11:32> Cosign ED Attending Cosignature Attestation: I was immediately available in the department for consultation. This documentation has been reviewed and I agree with assessment and plan. Supervised by Norris Scott DO
[2022-07-12 18:00] VITALS: BP 109/69; PULSE 71; O2SAT 100
[2022-07-12 18:06] VITALS: BP 130/69; PULSE 76; O2SAT 100
--- NOTE | 2022-07-12 18:12 | PC.NURSE ---
Went in to bring the patient Rt. handed thumb soft laced splint. Placed the splint on the patient and provided education on its use and function. Patient signed billing invoice.
== END 2022-07-12 18:34 | disposition home or self-care (01) ==
PROVIDERS: Emergency Provider Physician Assistant
DX: S62.001A Unspecified fracture of navicular [scaphoid] bone of right wrist, initial encounter for closed fracture (principal); W23.0XXA Caught, crushed, jammed, or pinched between moving objects, initial encounter
CPT/HCPCS: 73110; 73130; 99281; 99283